=== PATIENT | male | born 1945 | race African-American/Black ===

== ENCOUNTER 2017-05-28 18:02 | Inpatient (IN) | payer MEDICARE, MEDICAID ==
[~2017-05-28] VITALS: Ht 170.2 cm; Wt 69.4 kg
[~2017-05-28 18:02] MED LIST: FLUO-191 PO; RISP1 PO; SIMV-260 PO
[2017-05-28 20:08] LABS: EOSINOPHILS % (AUTO) 0.7 % (1.0-6.0); HEMATOCRIT 37.6 % (41-53); HEMOGLOBIN 12.9 g/dL (13.5-17.5); LYMPHOCYTES # (AUTO) 2.2 K/uL (1.0-4.8); LYMPHOCYTES % (AUTO) 36.8 % (22.0-44.0); MEAN CORPUSCULAR HEMOGLOBIN 34.4 pg (26.0-34.0); MEAN CORPUSCULAR HGB CONC 34.2 G/dL (31.0-37.0); MEAN CORPUSCULAR VOLUME 101 fL (80-100); MONOCYTES # (AUTO) 0.8 K/uL (0.1-1.0); MONOCYTES % (AUTO) 13.3 % (2.0-9.0); NEUTROPHILS # (AUTO) 2.8 K/uL (1.8-7.7); NEUTROPHILS % (AUTO) 48.2 % (40.0-70.0); PLATELET COUNT (AUTO) 257 K/uL (150-450); RED BLOOD CELL COUNT(AUTO) 3.74 MIL/uL (4.50-5.90); RED CELL DISTRIBUTION WIDTH 14.1 % (11.5-14.5)
[2017-05-28 20:17] LABS: ANION GAP 13 mmol/L (8-16); CALCIUM, TOTAL 9.6 mg/dL (8.8-10.5); CARBON DIOXIDE 22 mmol/L (22-29); CHLORIDE 104 mmol/L (98-107); CREATININE 0.96 mg/dL (0.60-1.30); GLOMERULAR FILTR. RATE CALC > 60 mL/min (>60); GLUCOSE,RANDOM 191 mg/dL (70-110); POTASSIUM 3.9 mmol/L (3.5-5.1); SODIUM SERUM 139 mmol/L (136-145); UREA NITROGEN, BLOOD 18 mg/dL (7-18)
[2017-05-28 20:25] LABS: ALANINE AMINOTRANSFERASE 57 U/L (12-78); ALBUMIN 3.4 g/dL (3.4-5.0); ALKALINE PHOSPHATASE 78 U/L (46-116); ASPARTATE AMINOTRANSFERASE 63 U/L (15-37); BILIRUBIN,TOTAL 0.2 mg/dL (0.1-1.0); TOTAL PROTEIN, SERUM 8.6 g/dL (6.4-8.2)
[2017-05-28] MEDS ORDERED: HALOPERIDOL 5 MG TABLET PO PRN (23:00)
[2017-05-28] MEDS ORDERED: LORazepam 2 MG TABLET PO PRN (23:00)
[2017-05-28] MEDS ORDERED: ZOLPIDEM TARTRATE 10 MG TABLET PO PRN (23:00)
[2017-05-29 00:30] VITALS: BP 143/96
[2017-05-29 01:29] VITALS: BP 143/96
[2017-05-29 12:59] VITALS: BP 136/83
[2017-05-29] MEDS ORDERED: IBUPROFEN 400 MG TABLET PO PRN (16:45)
[2017-05-29] MEDS ORDERED: ACETAMINOPHEN 325 MG TABLET PO PRN (16:45)
[2017-05-29] MEDS: FERROUS SULFATE 325 MG EC TABLET PO SCH (17:36)
[2017-05-29 18:57] VITALS: BP 148/80
[2017-05-29] MEDS: RisperiDONE 1 MG TABLET PO SCH (21:22)
[2017-05-29] MEDS: SIMVASTATIN 20 MG TABLET PO SCH (21:22)
[2017-05-30] MEDS: FERROUS SULFATE 325 MG EC TABLET PO SCH ×2 (06:49→17:10)
[2017-05-30] MEDS: FLUoxetine HCL 20 MG CAPSULE PO SCH (08:41)
[2017-05-30 09:58] VITALS: BP 120/87
[2017-05-30 10:50] LABS: AMPHET/METH SCREEN,URINE NEGATIVE (NEGATIVE); BARBITURATE SCREEN, URINE NEGATIVE (NEGATIVE); BENZODIAZEPINES SCREEN,URINE NEGATIVE (NEGATIVE); CANNABINOID SCREEN,URINE NEGATIVE (NEGATIVE); COCAINE SCREEN,URINE POSITIVE (NEGATIVE); METHADONE SCREEN, URINE NEGATIVE (NEGATIVE); OPIATE SCREEN,URINE NEGATIVE (NEGATIVE)
[2017-05-30 10:56] LABS: PHENCYCLIDINE SCREEN,URINE NEGATIVE (NEGATIVE)
[2017-05-30 11:25] LABS: APPEARANCE,URINE CLOUDY (CLEAR); BILIRUBIN,URINE NEGATIVE (NEGATIVE); GLUCOSE, URINE (UA) NEGATIVE (NEGATIVE); KETONES,URINE NEGATIVE (NEGATIVE); LEUKOCYTE ESTERASE ,URINE LARGE (NEGATIVE); NITRATE,URINE POSITIVE (NEGATIVE); OCCULT BLOOD,URINE NEGATIVE (NEGATIVE); PROTEIN,URINE NEGATIVE (NEGATIVE)
[2017-05-30 12:15] LABS: BACTERIA,URINE Many /HPF (None Seen); RBC,URINE 0-2 /HPF (0-2); SQUAMOUS EPITHELIAL CELL,UR Moderate /LPF (None Seen); WBC,URINE 26-50 /HPF (0-5)
[2017-05-30 16:48] VITALS: BP 126/90
[2017-05-30] MEDS: SIMVASTATIN 20 MG TABLET PO SCH (20:11)
[2017-05-30] MEDS: RisperiDONE 1 MG TABLET PO SCH (20:12)
[2017-05-31] MEDS: FERROUS SULFATE 325 MG EC TABLET PO SCH ×2 (06:36→17:02)
[2017-05-31 09:00] VITALS: BP 136/67
[2017-05-31] MEDS: FLUoxetine HCL 20 MG CAPSULE PO SCH (09:05)
[2017-05-31] MEDS: CIPROFLOXACIN HCL 500 MG TABLET PO SCH ×2 (09:06→17:09)
[2017-05-31 17:16] VITALS: BP 150/95
[2017-05-31] MEDS: SIMVASTATIN 20 MG TABLET PO SCH (20:28)
[2017-05-31] MEDS: RisperiDONE 1 MG TABLET PO SCH (20:28)
[2017-06-01] MEDS: FERROUS SULFATE 325 MG EC TABLET PO SCH ×2 (06:54→16:20)
[2017-06-01 09:00] VITALS: BP 108/87
[2017-06-01] MEDS: CIPROFLOXACIN HCL 500 MG TABLET PO SCH ×2 (09:19→16:20)
[2017-06-01] MEDS: FLUoxetine HCL 20 MG CAPSULE PO SCH (09:20)
[2017-06-01] MEDS: RisperiDONE 1 MG TABLET PO SCH (20:51)
[2017-06-01] MEDS: SIMVASTATIN 20 MG TABLET PO SCH (20:51)
[2017-06-01 21:51] VITALS: BP 120/82
[2017-06-02] MEDS: FERROUS SULFATE 325 MG EC TABLET PO SCH ×2 (06:38→16:32)
[2017-06-02] MEDS: FLUoxetine HCL 20 MG CAPSULE PO SCH (08:34)
[2017-06-02] MEDS: CIPROFLOXACIN HCL 500 MG TABLET PO SCH ×2 (08:34→16:32)
[2017-06-02 09:37] VITALS: BP 108/76
[2017-06-02] MEDS: RisperiDONE 1 MG TABLET PO SCH (20:21)
[2017-06-02] MEDS: SIMVASTATIN 20 MG TABLET PO SCH (20:21)
[2017-06-02 22:24] VITALS: BP 140/97
[2017-06-03] MEDS: FERROUS SULFATE 325 MG EC TABLET PO SCH ×2 (06:54→17:22)
[2017-06-03 08:30] VITALS: BP 102/70
[2017-06-03] MEDS: FLUoxetine HCL 20 MG CAPSULE PO SCH (09:44)
[2017-06-03] MEDS: CIPROFLOXACIN HCL 500 MG TABLET PO SCH ×2 (09:44→17:22)
[2017-06-03 17:23] VITALS: BP 119/89
[2017-06-03] MEDS: RisperiDONE 1 MG TABLET PO SCH (20:54)
[2017-06-03] MEDS: SIMVASTATIN 20 MG TABLET PO SCH (20:54)
[2017-06-04] MEDS: FERROUS SULFATE 325 MG EC TABLET PO SCH ×2 (06:45→17:16)
[2017-06-04] MEDS: CIPROFLOXACIN HCL 500 MG TABLET PO SCH ×2 (08:19→17:16)
[2017-06-04] MEDS: FLUoxetine HCL 20 MG CAPSULE PO SCH (08:20)
[2017-06-04 12:27] VITALS: BP 133/91
[2017-06-04 19:00] VITALS: BP 111/88
[2017-06-04] MEDS: RisperiDONE 1 MG TABLET PO SCH (20:24)
[2017-06-04] MEDS: SIMVASTATIN 20 MG TABLET PO SCH (20:24)
[2017-06-05] MEDS: FERROUS SULFATE 325 MG EC TABLET PO SCH (06:49)
[2017-06-05 08:15] VITALS: BP 127/73
[2017-06-05] MEDS: CIPROFLOXACIN HCL 500 MG TABLET PO SCH (08:21)
[2017-06-05] MEDS: FLUoxetine HCL 20 MG CAPSULE PO SCH (08:21)
[2017-06-05] MEDS ORDERED: FERR-89 PO (09:27)
[2017-06-05] MEDS ORDERED: CIPR-278 PO (09:27)
== END 2017-06-05 11:35 | disposition home or self-care (01) | DRG 885 ==
LOC: EMS 18:02 → 3EX 05-29 00:01
PROVIDERS: ADMIT Psychiatry & Neurology Psychiatry; ATTEND Psychiatry & Neurology Psychiatry
DX: F33.2 Major depressive disorder, recurrent severe without psychotic features (principal); R45.851 Suicidal ideations; F14.20 Cocaine dependence, uncomplicated; D64.9 Anemia, unspecified; N39.0 Urinary tract infection, site not specified; G89.29 Other chronic pain; F10.20 Alcohol dependence, uncomplicated; F41.9 Anxiety disorder, unspecified; E78.5 Hyperlipidemia, unspecified; M54.9 Dorsalgia, unspecified; F19.10 Other psychoactive substance abuse, uncomplicated; R45.87 Impulsiveness; B96.20 Unspecified Escherichia coli [E. coli] as the cause of diseases classified elsewhere; Z91.19 Patient's noncompliance with other medical treatment and regimen; Z91.5 Personal history of self-harm; Z71.41 Alcohol abuse counseling and surveillance of alcoholic; Z71.89 Other specified counseling; Z59.0 Homelessness
CPT/HCPCS: 80307; 87081; 87086; 99285; G0480

== ENCOUNTER 2017-06-16 17:06 | Emergency (ER) | payer MEDICARE, MEDICAID ==
[~2017-06-16] VITALS: Ht 165.1 cm; Wt 70.5 kg
[~2017-06-16 17:06] MED LIST changes: +CIPR-278 PO; +FERR-89 PO
[2017-06-16] MEDS ORDERED: ASPI81 PO (17:46)
[2017-06-16 18:31] VITALS: BP 120/90
== END 2017-06-16 19:40 | disposition left against medical advice (07) ==
LOC: EMS 17:07
DX: F10.129 Alcohol abuse with intoxication, unspecified (principal); F14.10 Cocaine abuse, uncomplicated; F17.200 Nicotine dependence, unspecified, uncomplicated
CPT/HCPCS: 99283

== ENCOUNTER 2017-11-11 22:33 | Inpatient (IN) | payer MEDICARE, MEDICAID ==
[~2017-11-11] VITALS: Ht 170.2 cm; Wt 71.4 kg
[~2017-11-11 22:33] MED LIST changes: +ASPI81 PO; -CIPR-278 PO
[2017-11-11 23:26] LABS: BASOPHILS % (AUTO) 0.7 % (0.0-2.0); EOSINOPHILS % (AUTO) 1.5 % (1.0-6.0); HEMATOCRIT 40.5 % (41-53); HEMOGLOBIN 13.9 g/dL (13.5-17.5); LYMPHOCYTES # (AUTO) 1.8 K/uL (1.0-4.8); LYMPHOCYTES % (AUTO) 40.6 % (22.0-44.0); MEAN CORPUSCULAR HEMOGLOBIN 32.5 pg (26.0-34.0); MEAN CORPUSCULAR HGB CONC 34.3 G/dL (31.0-37.0); MEAN CORPUSCULAR VOLUME 95 fL (80-100); MONOCYTES # (AUTO) 0.5 K/uL (0.1-1.0); MONOCYTES % (AUTO) 11.2 % (2.0-9.0); PLATELET COUNT (AUTO) 170 K/uL (150-450); RED BLOOD CELL COUNT(AUTO) 4.28 MIL/uL (4.50-5.90); RED CELL DISTRIBUTION WIDTH 13.5 % (11.5-14.5)
[2017-11-11 23:37] LABS: ANION GAP 8 mmol/L (8-16); CALCIUM, TOTAL 9.7 mg/dL (8.8-10.5); CARBON DIOXIDE 26 mmol/L (22-29); CHLORIDE 107 mmol/L (98-107); CREATININE 0.93 mg/dL (0.60-1.30); GLOMERULAR FILTR. RATE CALC > 60 mL/min (>60); GLUCOSE,RANDOM 119 mg/dL (70-110); POTASSIUM 4.1 mmol/L (3.5-5.1); SODIUM SERUM 141 mmol/L (136-145); UREA NITROGEN, BLOOD 15 mg/dL (7-18)
[2017-11-11 23:42] LABS: ALANINE AMINOTRANSFERASE 87 U/L (12-78); ALBUMIN 3.8 g/dL (3.4-5.0); ALKALINE PHOSPHATASE 87 U/L (46-116); ASPARTATE AMINOTRANSFERASE 65 U/L (15-37); BILIRUBIN,TOTAL 0.4 mg/dL (0.1-1.0); TOTAL PROTEIN, SERUM 8.4 g/dL (6.4-8.2)
[2017-11-12 01:43] LABS: AMPHET/METH SCREEN,URINE NEGATIVE (NEGATIVE); BARBITURATE SCREEN, URINE NEGATIVE (NEGATIVE); BENZODIAZEPINES SCREEN,URINE NEGATIVE (NEGATIVE); CANNABINOID SCREEN,URINE NEGATIVE (NEGATIVE); COCAINE SCREEN,URINE NEGATIVE (NEGATIVE); METHADONE SCREEN, URINE NEGATIVE (NEGATIVE); OPIATE SCREEN,URINE NEGATIVE (NEGATIVE); PHENCYCLIDINE SCREEN,URINE NEGATIVE (NEGATIVE)
[2017-11-12] MEDS ORDERED: HALOPERIDOL 5 MG TABLET PO PRN (03:00)
[2017-11-12] MEDS ORDERED: ZOLPIDEM TARTRATE 10 MG TABLET PO PRN (03:00)
[2017-11-12] MEDS ORDERED: LORazepam 2 MG TABLET PO PRN (03:00)
[2017-11-12 04:48] LABS: APPEARANCE,URINE CLEAR (CLEAR); BILIRUBIN,URINE NEGATIVE (NEGATIVE); GLUCOSE, URINE (UA) NEGATIVE (NEGATIVE); KETONES,URINE NEGATIVE (NEGATIVE); LEUKOCYTE ESTERASE ,URINE TRACE (NEGATIVE); NITRATE,URINE NEGATIVE (NEGATIVE); OCCULT BLOOD,URINE NEGATIVE (NEGATIVE); PROTEIN,URINE NEGATIVE (NEGATIVE)
[2017-11-12 04:54] VITALS: BP 130/86
[2017-11-12 05:01] LABS: BACTERIA,URINE None Seen /HPF (None Seen); RBC,URINE 0-2 /HPF (0-2); SQUAMOUS EPITHELIAL CELL,UR Few /LPF (None Seen)
[2017-11-12] MEDS ORDERED: ONDANSETRON HCL 4 MG TABLET PO PRN (05:30)
[2017-11-12] MEDS ORDERED: DOCUSATE SODIUM 100 MG CAPSULE PO PRN (05:30)
[2017-11-12] MEDS ORDERED: GuaiFENesin/D-METHORPHAN [SUGAR-FREE] 200-20MG/10 ML SYRUP UDCUP PO PRN (05:30)
[2017-11-12] MEDS ORDERED: NICOTINE 14 MG/24 HOUR PATCH TD PRN (05:30)
[2017-11-12] MEDS ORDERED: ACETAMINOPHEN 325 MG TABLET PO PRN (05:30)
[2017-11-12] MEDS ORDERED: PETROLATUM,WHITE 71 GM JELLY TP PRN (05:30)
[2017-11-12] MEDS ORDERED: MAG HYDROX/AL HYDROX/SIMETH ES 30 ML SUSPENSION UDCUP PO PRN (05:30)
[2017-11-12] MEDS ORDERED: ALBUTEROL SULFATE HFA 90 MCG/PUFF 8 GM INHALER IH PRN (05:30)
[2017-11-12] MEDS ORDERED: CloNIDine HCL 0.1 MG TABLET PO PRN (05:30)
[2017-11-12] MEDS ORDERED: LOPERAMIDE HCL 2 MG CAPSULE PO PRN (05:30)
[2017-11-12] MEDS ORDERED: PNEUMOCOCCAL VACCINE POLYVALENT 0.5 ML VIAL [PPSV23] IM ONE (07:00)
[2017-11-12 08:55] VITALS: BP 129/88
[2017-11-12] MEDS: MAGNESIUM HYDROXIDE SUSPENSION 30 ML UDCUP PO PRN (12:52)
[2017-11-12] MEDS: FERROUS SULFATE 325 MG EC TABLET PO SCH (16:27)
[2017-11-12] MEDS: CIPROFLOXACIN HCL 250 MG TABLET PO SCH (16:27)
[2017-11-12 17:00] VITALS: BP 119/85
[2017-11-12] MEDS: SIMVASTATIN 20 MG TABLET PO SCH (21:33)
[2017-11-12] MEDS: RisperiDONE 1 MG TABLET PO SCH (21:34)
[2017-11-13] MEDS: FERROUS SULFATE 325 MG EC TABLET PO SCH ×2 (07:32→16:17)
[2017-11-13 08:30] VITALS: BP 107/77
[2017-11-13] MEDS: FLUoxetine HCL 20 MG CAPSULE PO SCH (09:19)
[2017-11-13] MEDS: CIPROFLOXACIN HCL 250 MG TABLET PO SCH ×2 (09:19→16:17)
[2017-11-13] MEDS: IBUPROFEN 400 MG TABLET PO PRN (09:19)
[2017-11-13] MEDS: ASPIRIN 81 MG CHEWABLE TABLET PO SCH (09:19)
[2017-11-13] MEDS: MAGNESIUM HYDROXIDE SUSPENSION 30 ML UDCUP PO PRN (12:38)
[2017-11-13] MEDS ORDERED: BISACODYL 10 MG RECTAL RECTAL SUPPOSITORY PR PRN (14:30)
[2017-11-13 16:00] VITALS: BP 110/67
[2017-11-13] MEDS: RisperiDONE 1 MG TABLET PO SCH (20:05)
[2017-11-13] MEDS: SIMVASTATIN 20 MG TABLET PO SCH (20:05)
[2017-11-14 05:55] VITALS: BP 102/71
[2017-11-14] MEDS: FERROUS SULFATE 325 MG EC TABLET PO SCH ×2 (07:17→16:32)
[2017-11-14] MEDS: FLUoxetine HCL 20 MG CAPSULE PO SCH (09:48)
[2017-11-14] MEDS: ASPIRIN 81 MG CHEWABLE TABLET PO SCH (09:48)
[2017-11-14] MEDS: CIPROFLOXACIN HCL 250 MG TABLET PO SCH ×2 (09:48→16:32)
[2017-11-14 10:28] VITALS: BP 116/83
[2017-11-14 16:00] VITALS: BP 112/63
[2017-11-14] MEDS: RisperiDONE 1 MG TABLET PO SCH (21:17)
[2017-11-14] MEDS: SIMVASTATIN 20 MG TABLET PO SCH (21:17)
[2017-11-15] MEDS: MAGNESIUM HYDROXIDE SUSPENSION 30 ML UDCUP PO PRN (05:42)
[2017-11-15 05:50] VITALS: BP 125/85
[2017-11-15 06:34] LABS: FREE T4 (FREE THYROXINE) 0.86 ng/dL (0.76-1.46); THYROID STIMULATING HORMONE 1.9 uIU/mL (0.36-3.74)
[2017-11-15] MEDS: FERROUS SULFATE 325 MG EC TABLET PO SCH ×2 (07:11→20:55)
[2017-11-15] MEDS: IBUPROFEN 400 MG TABLET PO PRN (07:31)
[2017-11-15] MEDS: CIPROFLOXACIN HCL 250 MG TABLET PO SCH ×2 (08:17→17:01)
[2017-11-15] MEDS: ASPIRIN 81 MG CHEWABLE TABLET PO SCH (08:18)
[2017-11-15] MEDS: FLUoxetine HCL 20 MG CAPSULE PO SCH (08:18)
[2017-11-15 08:31] VITALS: BP 118/87
[2017-11-15 09:40] VITALS: BP 118/87
[2017-11-15] MEDS ORDERED: FERROUS SULFATE 325 MG EC TABLET PO SCH (17:30)
[2017-11-15 19:33] VITALS: BP 111/73
[2017-11-15] MEDS: SIMVASTATIN 20 MG TABLET PO SCH (20:56)
[2017-11-15] MEDS: RisperiDONE 1 MG TABLET PO SCH (20:56)
[2017-11-16 00:53] VITALS: BP 129/73
[2017-11-16] MEDS: IBUPROFEN 400 MG TABLET PO PRN ×2 (00:58→13:24)
[2017-11-16 07:49] LABS: BASOPHILS % (AUTO) 1.7 % (0.0-2.0); EOSINOPHILS % (AUTO) 1.7 % (1.0-6.0); HEMOGLOBIN 13.7 g/dL (13.5-17.5); LYMPHOCYTES # (AUTO) 1.3 K/uL (1.0-4.8); LYMPHOCYTES % (AUTO) 34.5 % (22.0-44.0); MEAN CORPUSCULAR HEMOGLOBIN 33.1 pg (26.0-34.0); MEAN CORPUSCULAR HGB CONC 34.3 G/dL (31.0-37.0); MEAN CORPUSCULAR VOLUME 96 fL (80-100); MONOCYTES # (AUTO) 0.6 K/uL (0.1-1.0); MONOCYTES % (AUTO) 15.6 % (2.0-9.0); NEUTROPHILS # (AUTO) 1.8 K/uL (1.8-7.7); NEUTROPHILS % (AUTO) 46.5 % (40.0-70.0); PLATELET COUNT (AUTO) 152 K/uL (150-450); RED BLOOD CELL COUNT(AUTO) 4.15 MIL/uL (4.50-5.90); RED CELL DISTRIBUTION WIDTH 13.6 % (11.5-14.5)
[2017-11-16 08:21] VITALS: BP 123/84
[2017-11-16] MEDS: CIPROFLOXACIN HCL 250 MG TABLET PO SCH ×2 (10:56→16:38)
[2017-11-16] MEDS: FLUoxetine HCL 20 MG CAPSULE PO SCH (10:56)
[2017-11-16] MEDS: FERROUS SULFATE 325 MG EC TABLET PO SCH ×2 (10:57→22:20)
[2017-11-16] MEDS: ASPIRIN 81 MG CHEWABLE TABLET PO SCH (10:58)
[2017-11-16 19:55] VITALS: BP 126/81
[2017-11-16] MEDS: RisperiDONE 1 MG TABLET PO SCH (22:20)
[2017-11-16] MEDS: SIMVASTATIN 20 MG TABLET PO SCH (22:20)
[2017-11-17 05:08] VITALS: BP 122/78
[2017-11-17 08:15] VITALS: BP 119/75
[2017-11-17] MEDS: FOLIC ACID 1 MG TABLET PO SCH (08:20)
[2017-11-17] MEDS: FLUoxetine HCL 20 MG CAPSULE PO SCH (08:20)
[2017-11-17] MEDS: CIPROFLOXACIN HCL 250 MG TABLET PO SCH ×2 (08:20→16:48)
[2017-11-17] MEDS: ASPIRIN 81 MG CHEWABLE TABLET PO SCH (08:21)
[2017-11-17 11:19] VITALS: BP 128/81
[2017-11-17] MEDS: IBUPROFEN 400 MG TABLET PO PRN (11:22)
[2017-11-17] MEDS: FERROUS SULFATE 325 MG EC TABLET PO SCH ×2 (11:52→20:10)
[2017-11-17 12:30] VITALS: BP 129/77
[2017-11-17 19:00] VITALS: BP 116/74
[2017-11-17] MEDS: RisperiDONE 1 MG TABLET PO SCH (20:10)
[2017-11-17] MEDS: SIMVASTATIN 20 MG TABLET PO SCH (20:10)
[2017-11-18 03:36] VITALS: BP 118/83
[2017-11-18 08:50] VITALS: BP 129/90
[2017-11-18] MEDS: FLUoxetine HCL 20 MG CAPSULE PO SCH (09:00)
[2017-11-18] MEDS: CIPROFLOXACIN HCL 250 MG TABLET PO SCH ×2 (09:00→17:00)
[2017-11-18] MEDS: FOLIC ACID 1 MG TABLET PO SCH (09:00)
[2017-11-18] MEDS: IBUPROFEN 400 MG TABLET PO PRN (09:00)
[2017-11-18] MEDS: ASPIRIN 81 MG CHEWABLE TABLET PO SCH (09:00)
[2017-11-18 10:00] VITALS: BP 122/76
[2017-11-18] MEDS: FERROUS SULFATE 325 MG EC TABLET PO SCH ×2 (12:30→20:41)
[2017-11-18 16:55] VITALS: BP 123/72
[2017-11-18] MEDS: RisperiDONE 1 MG TABLET PO SCH (20:41)
[2017-11-18] MEDS: SIMVASTATIN 20 MG TABLET PO SCH (20:41)
[2017-11-19 03:24] VITALS: BP 127/82
[2017-11-19] MEDS: IBUPROFEN 400 MG TABLET PO PRN (03:30)
[2017-11-19] MEDS: ASPIRIN 81 MG CHEWABLE TABLET PO SCH (08:10)
[2017-11-19] MEDS: FOLIC ACID 1 MG TABLET PO SCH (08:11)
[2017-11-19] MEDS: CIPROFLOXACIN HCL 250 MG TABLET PO SCH ×2 (08:11→16:41)
[2017-11-19] MEDS: FLUoxetine HCL 20 MG CAPSULE PO SCH (08:11)
[2017-11-19 09:16] VITALS: BP 142/95
[2017-11-19] MEDS: FERROUS SULFATE 325 MG EC TABLET PO SCH ×2 (13:21→21:05)
[2017-11-19 17:22] VITALS: BP 139/93
[2017-11-19] MEDS: SIMVASTATIN 20 MG TABLET PO SCH (21:05)
[2017-11-19] MEDS: RisperiDONE 1 MG TABLET PO SCH (21:06)
[2017-11-20 02:02] VITALS: BP 109/70
[2017-11-20] MEDS: IBUPROFEN 400 MG TABLET PO PRN (02:05)
[2017-11-20] MEDS: FOLIC ACID 1 MG TABLET PO SCH (08:35)
[2017-11-20] MEDS: FLUoxetine HCL 20 MG CAPSULE PO SCH (08:35)
[2017-11-20] MEDS: CIPROFLOXACIN HCL 250 MG TABLET PO SCH ×2 (08:36→16:21)
[2017-11-20] MEDS: ASPIRIN 81 MG CHEWABLE TABLET PO SCH (08:37)
[2017-11-20] MEDS: FERROUS SULFATE 325 MG EC TABLET PO SCH ×2 (12:27→20:24)
[2017-11-20 13:08] VITALS: BP 122/69
[2017-11-20 17:00] VITALS: BP 136/83
[2017-11-20] MEDS: RisperiDONE 1 MG TABLET PO SCH (20:24)
[2017-11-20] MEDS: SIMVASTATIN 20 MG TABLET PO SCH (20:24)
[2017-11-21 06:17] LABS: BASOPHILS % (AUTO) 0.4 % (0.0-2.0); EOSINOPHILS % (AUTO) 1.6 % (1.0-6.0); HEMATOCRIT 37.3 % (41-53); HEMOGLOBIN 12.7 g/dL (13.5-17.5); LYMPHOCYTES # (AUTO) 1.4 K/uL (1.0-4.8); LYMPHOCYTES % (AUTO) 33.9 % (22.0-44.0); MEAN CORPUSCULAR HEMOGLOBIN 32.7 pg (26.0-34.0); MEAN CORPUSCULAR HGB CONC 34.1 G/dL (31.0-37.0); MEAN CORPUSCULAR VOLUME 96 fL (80-100); MONOCYTES # (AUTO) 0.8 K/uL (0.1-1.0); MONOCYTES % (AUTO) 20.2 % (2.0-9.0); NEUTROPHILS # (AUTO) 1.8 K/uL (1.8-7.7); NEUTROPHILS % (AUTO) 43.9 % (40.0-70.0); PLATELET COUNT (AUTO) 139 K/uL (150-450); RED BLOOD CELL COUNT(AUTO) 3.88 MIL/uL (4.50-5.90); RED CELL DISTRIBUTION WIDTH 13.8 % (11.5-14.5)
[2017-11-21 06:39] VITALS: BP 132/86
[2017-11-21] MEDS: IBUPROFEN 400 MG TABLET PO PRN (06:41)
[2017-11-21] MEDS: FLUoxetine HCL 20 MG CAPSULE PO SCH (08:21)
[2017-11-21] MEDS: CIPROFLOXACIN HCL 250 MG TABLET PO SCH ×2 (08:21→16:07)
[2017-11-21] MEDS: ASPIRIN 81 MG CHEWABLE TABLET PO SCH (08:21)
[2017-11-21] MEDS: FOLIC ACID 1 MG TABLET PO SCH (08:21)
[2017-11-21 09:00] VITALS: BP 133/89
[2017-11-21] MEDS: FERROUS SULFATE 325 MG EC TABLET PO SCH ×2 (12:21→21:04)
[2017-11-21 17:00] VITALS: BP 144/98
[2017-11-21] MEDS: RisperiDONE 1 MG TABLET PO SCH (21:04)
[2017-11-21] MEDS: SIMVASTATIN 20 MG TABLET PO SCH (21:04)
[2017-11-22 06:22] VITALS: BP 124/66
[2017-11-22 08:30] VITALS: BP 141/89
[2017-11-22] MEDS: FLUoxetine HCL 20 MG CAPSULE PO SCH ×2 (09:00→09:20)
[2017-11-22] MEDS: FOLIC ACID 1 MG TABLET PO SCH (09:20)
[2017-11-22] MEDS: ASPIRIN 81 MG CHEWABLE TABLET PO SCH (09:20)
[2017-11-22] MEDS: CIPROFLOXACIN HCL 250 MG TABLET PO SCH ×2 (09:20→16:09)
[2017-11-22 09:21] VITALS: BP 144/90
[2017-11-22] MEDS: IBUPROFEN 400 MG TABLET PO PRN (09:21)
[2017-11-22] MEDS: FERROUS SULFATE 325 MG EC TABLET PO SCH ×2 (12:44→20:24)
[2017-11-22] MEDS ORDERED: TraMADol HCL 50 MG TABLET PO PRN (13:45)
[2017-11-22 14:09] VITALS: BP 133/83
[2017-11-22 19:49] VITALS: BP 109/76
[2017-11-22] MEDS: RisperiDONE 1 MG TABLET PO SCH (20:24)
[2017-11-22] MEDS: SIMVASTATIN 20 MG TABLET PO SCH (20:24)
[2017-11-23 02:30] VITALS: BP 120/77
[2017-11-23 08:00] VITALS: BP 132/86
[2017-11-23] MEDS: ASPIRIN 81 MG CHEWABLE TABLET PO SCH (09:00)
[2017-11-23] MEDS: FOLIC ACID 1 MG TABLET PO SCH (09:00)
[2017-11-23] MEDS: FLUoxetine HCL 20 MG CAPSULE PO SCH (09:01)
[2017-11-23] MEDS: FERROUS SULFATE 325 MG EC TABLET PO SCH ×2 (12:01→20:01)
[2017-11-23 19:12] VITALS: BP 128/81
[2017-11-23] MEDS: IBUPROFEN 400 MG TABLET PO PRN (19:12)
[2017-11-23 19:37] VITALS: BP 137/80
[2017-11-23] MEDS: SIMVASTATIN 20 MG TABLET PO SCH (20:01)
[2017-11-23] MEDS: RisperiDONE 1 MG TABLET PO SCH (20:01)
[2017-11-23 20:12] VITALS: BP 130/79
[2017-11-24 04:00] VITALS: BP 136/87
[2017-11-24 08:42] VITALS: BP 149/89
[2017-11-24] MEDS: IBUPROFEN 400 MG TABLET PO PRN (08:42)
[2017-11-24] MEDS: ASPIRIN 81 MG CHEWABLE TABLET PO SCH (08:42)
[2017-11-24] MEDS: FOLIC ACID 1 MG TABLET PO SCH (08:42)
[2017-11-24] MEDS: FLUoxetine HCL 20 MG CAPSULE PO SCH (08:43)
[2017-11-24] MEDS ORDERED: FOLI1 PO (08:55)
== END 2017-11-24 12:30 | disposition home or self-care (01) | DRG 885 ==
LOC: EMS 22:34 → 3EX 11-12 02:22
PROVIDERS: ATTEND Psychiatry & Neurology Psychiatry
DX: F25.1 Schizoaffective disorder, depressive type (principal); R45.851 Suicidal ideations; N39.0 Urinary tract infection, site not specified; Z59.0 Homelessness; F41.9 Anxiety disorder, unspecified; D64.9 Anemia, unspecified; D72.819 Decreased white blood cell count, unspecified; E78.5 Hyperlipidemia, unspecified; F10.20 Alcohol dependence, uncomplicated; F14.10 Cocaine abuse, uncomplicated; F17.200 Nicotine dependence, unspecified, uncomplicated; Z91.19 Patient's noncompliance with other medical treatment and regimen; Z91.5 Personal history of self-harm; R74.0 Nonspecific elevation of levels of transaminase and lactic acid dehydrogenase [LDH]; G89.29 Other chronic pain; Z79.82 Long term (current) use of aspirin; Z79.899 Other long term (current) drug therapy; R45.87 Impulsiveness; Z28.21 Immunization not carried out because of patient refusal
CPT/HCPCS: 84439; 84443; 87086; 99285; G0480

== ENCOUNTER 2017-11-30 08:27 | Inpatient (IN) | payer MEDICARE, MEDICAID ==
[~2017-11-30] VITALS: Ht 170.2 cm; Wt 71.4 kg
[~2017-11-30 08:27] MED LIST changes: +FOLI1 PO
[2017-11-30] MEDS ORDERED: LORazepam 2 MG TABLET PO ONE (09:30)
[2017-11-30] MEDS ORDERED: RisperiDONE 1 MG TABLET PO ONE (09:30)
[2017-11-30 09:52] LABS: BASOPHILS % (AUTO) 0.9 % (0.0-2.0); EOSINOPHILS % (AUTO) 0.2 % (1.0-6.0); HEMATOCRIT 38.9 % (41-53); HEMOGLOBIN 13.1 g/dL (13.5-17.5); LYMPHOCYTES % (AUTO) 19.2 % (22.0-44.0); MEAN CORPUSCULAR HEMOGLOBIN 32.7 pg (26.0-34.0); MEAN CORPUSCULAR HGB CONC 33.8 G/dL (31.0-37.0); MEAN CORPUSCULAR VOLUME 97 fL (80-100); MONOCYTES # (AUTO) 0.5 K/uL (0.1-1.0); MONOCYTES % (AUTO) 9.2 % (2.0-9.0); NEUTROPHILS # (AUTO) 3.5 K/uL (1.8-7.7); NEUTROPHILS % (AUTO) 70.5 % (40.0-70.0); PLATELET COUNT (AUTO) 176 K/uL (150-450); RED BLOOD CELL COUNT(AUTO) 4.01 MIL/uL (4.50-5.90)
[2017-11-30] MEDS ORDERED: ZOLPIDEM TARTRATE 10 MG TABLET PO PRN (10:00)
[2017-11-30] MEDS ORDERED: LORazepam 2 MG TABLET PO PRN (10:00)
[2017-11-30] MEDS ORDERED: HALOPERIDOL 5 MG TABLET PO PRN (10:00)
[2017-11-30 10:03] LABS: ANION GAP 11 mmol/L (8-16); CALCIUM, TOTAL 8.7 mg/dL (8.8-10.5); CARBON DIOXIDE 26 mmol/L (22-29); CHLORIDE 105 mmol/L (98-107); CREATININE 0.89 mg/dL (0.60-1.30); GLUCOSE,RANDOM 177 mg/dL (70-110); POTASSIUM 3.8 mmol/L (3.5-5.1); SODIUM SERUM 142 mmol/L (136-145); UREA NITROGEN, BLOOD 19 mg/dL (7-18)
[2017-11-30 10:05] LABS: GLOMERULAR FILTR. RATE CALC > 60 mL/min (>60)
[2017-11-30 10:09] LABS: ALANINE AMINOTRANSFERASE 110 U/L (12-78); ALBUMIN 3.7 g/dL (3.4-5.0); ALKALINE PHOSPHATASE 152 U/L (46-116); ASPARTATE AMINOTRANSFERASE 149 U/L (15-37); BILIRUBIN,TOTAL 0.3 mg/dL (0.1-1.0); TOTAL PROTEIN, SERUM 8.3 g/dL (6.4-8.2)
[2017-11-30 14:03] VITALS: BP 145/88
[2017-11-30] MEDS ORDERED: RisperiDONE 1 MG TABLET PO SCH (21:00)
[2017-12-01] MEDS ORDERED: FLUoxetine HCL 20 MG CAPSULE PO SCH (09:00)
[2017-12-06] MEDS ORDERED: NYST15PO3 TP (08:04)
== END 2017-11-30 20:13 | disposition still patient (30) | DRG 885 ==
LOC: EMS 08:28 → B2X 14:09
PROVIDERS: ADMIT Psychiatry & Neurology Psychiatry; ATTEND Psychiatry & Neurology Psychiatry
DX: F25.1 Schizoaffective disorder, depressive type (principal); R45.851 Suicidal ideations; F41.9 Anxiety disorder, unspecified; F10.229 Alcohol dependence with intoxication, unspecified; F17.210 Nicotine dependence, cigarettes, uncomplicated; F19.90 Other psychoactive substance use, unspecified, uncomplicated; F14.90 Cocaine use, unspecified, uncomplicated; G89.29 Other chronic pain; Z59.0 Homelessness; Z91.19 Patient's noncompliance with other medical treatment and regimen; Z91.5 Personal history of self-harm; Z79.899 Other long term (current) drug therapy; Y90.7 Blood alcohol level of 200-239 mg/100 ml
CPT/HCPCS: 93005; 99285; G0480

== ENCOUNTER 2018-04-17 18:19 | Inpatient (IN) | payer MEDICARE, MEDICAID ==
[~2018-04-17] VITALS: Ht 170.2 cm; Wt 74.5 kg
[~2018-04-17 18:19] MED LIST changes: -FOLI1 PO; +NYST15PO3 TP
[2018-04-17 19:58] LABS: ALBUMIN 3.3 g/dL (3.4-5.0); BILIRUBIN,TOTAL 0.2 mg/dL (0.1-1.0); CALCIUM, TOTAL 9.4 mg/dL (8.8-10.5); CREATININE 1.52 mg/dL (0.60-1.30); TOTAL PROTEIN, SERUM 7.8 g/dL (6.4-8.2)
[2018-04-17 20:02] LABS: BASOPHILS % (AUTO) 0.9 % (0.0-2.0); EOSINOPHILS % (AUTO) 0.5 % (1.0-6.0); HEMATOCRIT 39.9 % (41-53); HEMOGLOBIN 13.7 g/dL (13.5-17.5); LYMPHOCYTES # (AUTO) 2.1 K/uL (1.0-4.8); LYMPHOCYTES % (AUTO) 35.2 % (22.0-44.0); MEAN CORPUSCULAR HEMOGLOBIN 34.4 pg (26.0-34.0); MEAN CORPUSCULAR HGB CONC 34.4 G/dL (31.0-37.0); MEAN CORPUSCULAR VOLUME 100 fL (80-100); MONOCYTES # (AUTO) 0.8 K/uL (0.1-1.0); MONOCYTES % (AUTO) 13.2 % (2.0-9.0); NEUTROPHILS % (AUTO) 50.2 % (40.0-70.0); PLATELET COUNT (AUTO) 262 K/uL (150-450); RED BLOOD CELL COUNT(AUTO) 3.99 MIL/uL (4.50-5.90); RED CELL DISTRIBUTION WIDTH 14.3 % (11.5-14.5)
[2018-04-18] MEDS ORDERED: LORazepam 2 MG TABLET PO PRN (00:15)
[2018-04-18] MEDS ORDERED: HALOPERIDOL 5 MG TABLET PO PRN (00:15)
[2018-04-18 02:22] VITALS: BP 113/59
[2018-04-18] MEDS ORDERED: PNEUMOCOCCAL VACCINE POLYVALENT 0.5 ML VIAL [PPSV23] IM ONE (04:00)
[2018-04-18] MEDS ORDERED: BENZOCAINE/MENTHOL LOZENGE MM PRN (10:15)
[2018-04-18] MEDS ORDERED: CloNIDine HCL 0.1 MG TABLET PO PRN (10:15)
[2018-04-18] MEDS ORDERED: LOPERAMIDE HCL 2 MG CAPSULE PO PRN (10:15)
[2018-04-18] MEDS ORDERED: MAG HYDROX/AL HYDROX/SIMETH ES 30 ML SUSPENSION UDCUP PO PRN (10:15)
[2018-04-18] MEDS ORDERED: PETROLATUM,WHITE 71 GM JELLY TP PRN (10:15)
[2018-04-18] MEDS ORDERED: IBUPROFEN 600 MG TABLET PO PRN (10:15)
[2018-04-18] MEDS ORDERED: ONDANSETRON HCL 4 MG TABLET PO PRN (10:15)
[2018-04-18] MEDS ORDERED: ACETAMINOPHEN 325 MG TABLET PO PRN (10:15)
[2018-04-18] MEDS ORDERED: ALBUTEROL SULFATE HFA 90 MCG/PUFF 8 GM INHALER IH PRN (10:15)
[2018-04-18] MEDS ORDERED: BACITRACIN 28.4 GM OINTMENT TP PRN (10:15)
[2018-04-18] MEDS: MAGNESIUM HYDROXIDE SUSPENSION 30 ML UDCUP PO PRN (12:39)
[2018-04-18 14:27] VITALS: BP 110/70
[2018-04-18 17:00] VITALS: BP 116/79
[2018-04-18] MEDS: FERROUS SULFATE 325 MG EC TABLET PO SCH (18:14)
[2018-04-18] MEDS: RisperiDONE 1 MG TABLET PO SCH (20:46)
[2018-04-18] MEDS: SIMVASTATIN 20 MG TABLET PO SCH (20:46)
[2018-04-19 05:46] VITALS: BP 108/68
[2018-04-19] MEDS: FERROUS SULFATE 325 MG EC TABLET PO SCH ×2 (06:59→16:32)
[2018-04-19 07:21] LABS: CHOL/HDL RATIO 2.3 (4.2-7.3)
[2018-04-19] MEDS: OMEPRAZOLE 20 MG CAPSULE PO SCH (09:57)
[2018-04-19] MEDS: FLUoxetine HCL 20 MG CAPSULE PO SCH (09:58)
[2018-04-19] MEDS: DOCUSATE SODIUM 100 MG CAPSULE PO SCH (09:58)
[2018-04-19] MEDS: ASPIRIN 81 MG CHEWABLE TABLET PO SCH (09:59)
[2018-04-19 10:00] VITALS: BP 112/80
[2018-04-19 16:40] VITALS: BP 124/89
[2018-04-19] MEDS: SIMVASTATIN 20 MG TABLET PO SCH (20:30)
[2018-04-19] MEDS: RisperiDONE 1 MG TABLET PO SCH (20:30)
[2018-04-20] MEDS: FERROUS SULFATE 325 MG EC TABLET PO SCH ×2 (06:30→17:18)
[2018-04-20 09:20] VITALS: BP 119/91
[2018-04-20] MEDS: DOCUSATE SODIUM 100 MG CAPSULE PO SCH (10:08)
[2018-04-20] MEDS: ASPIRIN 81 MG CHEWABLE TABLET PO SCH (10:08)
[2018-04-20] MEDS: OMEPRAZOLE 20 MG CAPSULE PO SCH (10:08)
[2018-04-20] MEDS: FLUoxetine HCL 20 MG CAPSULE PO SCH (10:08)
[2018-04-20] MEDS: MAGNESIUM HYDROXIDE SUSPENSION 30 ML UDCUP PO PRN (10:14)
[2018-04-20 17:20] VITALS: BP 123/84
[2018-04-20] MEDS: SIMVASTATIN 20 MG TABLET PO SCH (20:16)
[2018-04-20] MEDS: RisperiDONE 1 MG TABLET PO SCH (20:16)
[2018-04-21 06:30] VITALS: BP 127/93
[2018-04-21] MEDS: FERROUS SULFATE 325 MG EC TABLET PO SCH ×2 (06:55→16:08)
[2018-04-21 09:49] VITALS: BP 106/79
[2018-04-21] MEDS: FLUoxetine HCL 20 MG CAPSULE PO SCH (10:05)
[2018-04-21] MEDS: ASPIRIN 81 MG CHEWABLE TABLET PO SCH (10:05)
[2018-04-21] MEDS: DOCUSATE SODIUM 100 MG CAPSULE PO SCH (10:05)
[2018-04-21] MEDS: OMEPRAZOLE 20 MG CAPSULE PO SCH (10:05)
[2018-04-21 16:47] VITALS: BP 129/83
[2018-04-21] MEDS: RisperiDONE 1 MG TABLET PO SCH (20:23)
[2018-04-21] MEDS: SIMVASTATIN 20 MG TABLET PO SCH (20:23)
[2018-04-21] MEDS: ZOLPIDEM TARTRATE 10 MG TABLET PO PRN (20:42)
[2018-04-22] MEDS: FERROUS SULFATE 325 MG EC TABLET PO SCH ×2 (06:34→16:05)
[2018-04-22] MEDS: LACTULOSE 20 GM/30 ML SOLUTION UDCUP PO SCH ×2 (06:34→16:07)
[2018-04-22 08:05] VITALS: BP 107/72
[2018-04-22] MEDS: FLUoxetine HCL 20 MG CAPSULE PO SCH (09:53)
[2018-04-22] MEDS: ASPIRIN 81 MG CHEWABLE TABLET PO SCH (09:53)
[2018-04-22] MEDS: DOCUSATE SODIUM 100 MG CAPSULE PO SCH (09:53)
[2018-04-22] MEDS: OMEPRAZOLE 20 MG CAPSULE PO SCH (09:53)
[2018-04-22 18:51] VITALS: BP 137/85
[2018-04-22] MEDS: RisperiDONE 1 MG TABLET PO SCH (20:54)
[2018-04-22] MEDS: ZOLPIDEM TARTRATE 10 MG TABLET PO PRN (20:56)
[2018-04-22] MEDS: SIMVASTATIN 20 MG TABLET PO SCH (21:04)
[2018-04-23] MEDS: FERROUS SULFATE 325 MG EC TABLET PO SCH (06:54)
[2018-04-23] MEDS: OMEPRAZOLE 20 MG CAPSULE PO SCH (09:41)
[2018-04-23] MEDS: ASPIRIN 81 MG CHEWABLE TABLET PO SCH (09:41)
[2018-04-23] MEDS: FLUoxetine HCL 20 MG CAPSULE PO SCH (09:41)
[2018-04-23] MEDS: DOCUSATE SODIUM 100 MG CAPSULE PO SCH (09:41)
[2018-04-23 12:45] VITALS: BP 117/79
[2018-04-23] MEDS ORDERED: OMEP20 PO (13:26)
[2018-04-23] MEDS ORDERED: DSS100 PO (13:39)
== END 2018-04-23 17:15 | disposition home or self-care (01) | DRG 885 ==
LOC: EMS 18:20 → 3EI 04-18 01:30
PROVIDERS: ADMIT Psychiatry & Neurology Psychiatry; ATTEND Psychiatry & Neurology Psychiatry
DX: F20.9 Schizophrenia, unspecified (principal); R45.851 Suicidal ideations; Z28.21 Immunization not carried out because of patient refusal; E78.00 Pure hypercholesterolemia, unspecified; G47.00 Insomnia, unspecified; G89.29 Other chronic pain; F17.200 Nicotine dependence, unspecified, uncomplicated; F10.10 Alcohol abuse, uncomplicated; Y90.9 Presence of alcohol in blood, level not specified; F19.10 Other psychoactive substance abuse, uncomplicated; B19.20 Unspecified viral hepatitis C without hepatic coma; F14.90 Cocaine use, unspecified, uncomplicated
CPT/HCPCS: 80074; G0480

== ENCOUNTER 2018-04-30 19:51 | Emergency (ER) | payer MEDICARE, MEDICAID ==
[~2018-04-30] VITALS: Ht 170.2 cm; Wt 72.7 kg
[~2018-04-30 19:51] MED LIST changes: -FERR-89 PO; +FOLI1 PO; +MAGOX PO; +MULT-248 PO; -NYST15PO3 TP
[2018-04-30 23:30] VITALS: BP 101/67
== END 2018-04-30 23:44 | disposition home or self-care (01) ==
LOC: EMS 19:52
DX: F10.129 Alcohol abuse with intoxication, unspecified (principal); R00.2 Palpitations; F32.9 Major depressive disorder, single episode, unspecified; G89.29 Other chronic pain; F14.90 Cocaine use, unspecified, uncomplicated; Z87.891 Personal history of nicotine dependence
CPT/HCPCS: 93005

== ENCOUNTER 2018-05-01 00:29 | Emergency (ER) | payer MEDICARE, MEDICAID ==
[~2018-05-01] VITALS: Ht 177.8 cm; Wt 81.8 kg
[2018-05-01 03:06] LABS: BASOPHILS % (AUTO) 0.3 % (0.0-2.0); EOSINOPHILS % (AUTO) 1.4 % (1.0-6.0); HEMATOCRIT 38.3 % (41-53); HEMOGLOBIN 12.8 g/dL (13.5-17.5); LYMPHOCYTES # (AUTO) 2.3 K/uL (1.0-4.8); LYMPHOCYTES % (AUTO) 40.3 % (22.0-44.0); MEAN CORPUSCULAR HEMOGLOBIN 33.7 pg (26.0-34.0); MEAN CORPUSCULAR HGB CONC 33.4 G/dL (31.0-37.0); MEAN CORPUSCULAR VOLUME 101 fL (80-100); MONOCYTES # (AUTO) 0.7 K/uL (0.1-1.0); MONOCYTES % (AUTO) 11.5 % (2.0-9.0); NEUTROPHILS # (AUTO) 2.7 K/uL (1.8-7.7); NEUTROPHILS % (AUTO) 46.5 % (40.0-70.0); PLATELET COUNT (AUTO) 170 K/uL (150-450); RED CELL DISTRIBUTION WIDTH 14.1 % (11.5-14.5)
[2018-05-01 03:08] LABS: CALCIUM, TOTAL 9.2 mg/dL (8.8-10.5); CREATININE 1.64 mg/dL (0.60-1.30); POTASSIUM 3.8 mmol/L (3.5-5.1)
[2018-05-01 03:14] LABS: ALBUMIN 3.3 g/dL (3.4-5.0); BILIRUBIN,TOTAL 0.3 mg/dL (0.1-1.0); TOTAL PROTEIN, SERUM 7.6 g/dL (6.4-8.2)
[2018-05-01 05:06] VITALS: BP 99/65
== END 2018-05-01 05:10 | disposition home or self-care (01) ==
LOC: EMS 00:30
DX: E86.0 Dehydration (principal); F10.129 Alcohol abuse with intoxication, unspecified; F32.9 Major depressive disorder, single episode, unspecified; G89.29 Other chronic pain; Y90.8 Blood alcohol level of 240 mg/100 ml or more
CPT/HCPCS: 36415; 80053; 85025; 99283; G0480

== ENCOUNTER 2018-05-16 11:24 | Inpatient (IN) | payer MEDICARE, MEDICAID ==
[2018-05-16] VITALS (10 sets, daily range): BP systolic 113–139; BP diastolic 72–90
[~2018-05-16] VITALS: Ht 170.2 cm; Wt 78.6 kg
[~2018-05-16 11:24] MED LIST changes: -ASPI81 PO; +DSS100 PO; -FOLI1 PO; -MAGOX PO; -MULT-248 PO; +MVITFE PO; +OMEP20 PO; -RISP1 PO; +RISP3 PO; +RISPC50 IM; -SIMV-260 PO
[2018-05-16] MEDS ORDERED: HALOPERIDOL 5 MG TABLET PO PRN (12:00)
[2018-05-16] MEDS ORDERED: LORazepam 2 MG TABLET PO PRN (12:00)
[2018-05-16] MEDS ORDERED: ZOLPIDEM TARTRATE 10 MG TABLET PO PRN (12:00)
[2018-05-16] MEDS ORDERED: PNEUMOCOCCAL VACCINE POLYVALENT 0.5 ML VIAL [PPSV23] IM ONE (12:30)
[2018-05-16] MEDS: RisperiDONE 1 MG TABLET PO SCH (20:36)
[2018-05-17 02:55] VITALS: BP 137/89
[2018-05-17 06:50] VITALS: BP 132/86
[2018-05-17] MEDS ORDERED: MAG HYDROX/AL HYDROX/SIMETH ES 30 ML SUSPENSION UDCUP PO PRN (08:00)
[2018-05-17] MEDS ORDERED: BACITRACIN 28.4 GM OINTMENT TP PRN (08:00)
[2018-05-17] MEDS ORDERED: ALBUTEROL SULFATE HFA 90 MCG/PUFF 8 GM INHALER IH PRN (08:00)
[2018-05-17] MEDS ORDERED: MAGNESIUM HYDROXIDE SUSPENSION 30 ML UDCUP PO PRN (08:00)
[2018-05-17] MEDS ORDERED: ONDANSETRON HCL 4 MG TABLET PO PRN (08:00)
[2018-05-17] MEDS ORDERED: BENZOCAINE/MENTHOL LOZENGE MM PRN (08:00)
[2018-05-17] MEDS ORDERED: ACETAMINOPHEN 325 MG TABLET PO PRN (08:00)
[2018-05-17] MEDS ORDERED: LOPERAMIDE HCL 2 MG CAPSULE PO PRN (08:00)
[2018-05-17] MEDS ORDERED: IBUPROFEN 600 MG TABLET PO PRN (08:00)
[2018-05-17] MEDS ORDERED: CloNIDine HCL 0.1 MG TABLET PO PRN (08:00)
[2018-05-17] MEDS ORDERED: PETROLATUM,WHITE 71 GM JELLY TP PRN (08:00)
[2018-05-17 08:09] VITALS: BP 137/96
[2018-05-17 08:15] VITALS: BP 137/96
[2018-05-17 08:27] LABS: BASOPHILS % (AUTO) 0.5 % (0.0-2.0); EOSINOPHILS % (AUTO) 0.7 % (1.0-6.0); HEMATOCRIT 39.6 % (41-53); HEMOGLOBIN 13.4 g/dL (13.5-17.5); LYMPHOCYTES # (AUTO) 1.4 K/uL (1.0-4.8); LYMPHOCYTES % (AUTO) 26.4 % (22.0-44.0); MEAN CORPUSCULAR HEMOGLOBIN 33.6 pg (26.0-34.0); MEAN CORPUSCULAR HGB CONC 33.7 G/dL (31.0-37.0); MEAN CORPUSCULAR VOLUME 100 fL (80-100); MONOCYTES # (AUTO) 0.7 K/uL (0.1-1.0); MONOCYTES % (AUTO) 12.4 % (2.0-9.0); NEUTROPHILS # (AUTO) 3.2 K/uL (1.8-7.7); PLATELET COUNT (AUTO) 227 K/uL (150-450); RED BLOOD CELL COUNT(AUTO) 3.97 MIL/uL (4.50-5.90); RED CELL DISTRIBUTION WIDTH 14.3 % (11.5-14.5)
[2018-05-17 08:45] LABS: ALANINE AMINOTRANSFERASE 61 U/L (12-78); ALBUMIN 3.5 g/dL (3.4-5.0); ALKALINE PHOSPHATASE 100 U/L (46-116); ANION GAP 9 mmol/L (8-16); ASPARTATE AMINOTRANSFERASE 59 U/L (15-37); BILIRUBIN,TOTAL 0.4 mg/dL (0.1-1.0); CALCIUM, TOTAL 9.6 mg/dL (8.8-10.5); CARBON DIOXIDE 27 mmol/L (22-29); CHLORIDE 103 mmol/L (98-107); CHOL/HDL RATIO 2.1 (4.2-7.3); CHOLESTEROL 196 mg/dL (131-200); CREATININE 0.87 mg/dL (0.60-1.30); FREE T4 (FREE THYROXINE) 0.92 ng/dL (0.76-1.46); GLUCOSE,RANDOM 120 mg/dL (70-110); HDL CHOLESTEROL 94 mg/dL (40-60); LDL CHOL (CALC.) 97 mg/dL (0-130); POTASSIUM 3.9 mmol/L (3.5-5.1); SODIUM SERUM 139 mmol/L (136-145); TOTAL PROTEIN, SERUM 8.1 g/dL (6.4-8.2); TRIGLYCERIDES 25 mg/dL (15-150); UREA NITROGEN, BLOOD 10 mg/dL (7-18)
[2018-05-17 08:50] LABS: GLOMERULAR FILTR. RATE CALC > 60 mL/min (>60)
[2018-05-17] MEDS: FLUoxetine HCL 20 MG CAPSULE PO SCH (08:50)
[2018-05-17] MEDS: OMEPRAZOLE 20 MG CAPSULE PO SCH (08:50)
[2018-05-17] MEDS: DOCUSATE SODIUM 100 MG CAPSULE PO SCH (08:50)
[2018-05-17 09:27] LABS: HEMOGLOBIN A1C 6.8 % (4.5-6.2)
[2018-05-17 12:15] VITALS: BP 139/89
[2018-05-17 16:45] VITALS: BP 144/98
[2018-05-17] MEDS: RisperiDONE 1 MG TABLET PO SCH (20:34)
[2018-05-18 06:12] VITALS: BP 126/80
[2018-05-18 08:07] VITALS: BP 116/79
[2018-05-18] MEDS: DOCUSATE SODIUM 100 MG CAPSULE PO SCH (08:20)
[2018-05-18] MEDS: OMEPRAZOLE 20 MG CAPSULE PO SCH (08:20)
[2018-05-18] MEDS: FLUoxetine HCL 20 MG CAPSULE PO SCH (08:20)
[2018-05-18 16:08] VITALS: BP 126/80
[2018-05-18] MEDS: RisperiDONE 1 MG TABLET PO SCH (20:33)
[2018-05-19 05:12] VITALS: BP 128/82
[2018-05-19 08:19] VITALS: BP 124/84
[2018-05-19] MEDS: OMEPRAZOLE 20 MG CAPSULE PO SCH (08:25)
[2018-05-19] MEDS: FLUoxetine HCL 20 MG CAPSULE PO SCH (08:25)
[2018-05-19] MEDS: DOCUSATE SODIUM 100 MG CAPSULE PO SCH (08:25)
[2018-05-19 16:04] VITALS: BP 140/84
[2018-05-19] MEDS: RisperiDONE 1 MG TABLET PO SCH (20:11)
[2018-05-20 08:32] VITALS: BP 118/82
[2018-05-20] MEDS: DOCUSATE SODIUM 100 MG CAPSULE PO SCH (08:32)
[2018-05-20] MEDS: FLUoxetine HCL 20 MG CAPSULE PO SCH (08:32)
[2018-05-20] MEDS: OMEPRAZOLE 20 MG CAPSULE PO SCH (08:32)
[2018-05-20] MEDS ORDERED: RISP1 PO (09:36)
== END 2018-05-20 13:00 | disposition home or self-care (01) | DRG 885 ==
LOC: B2X 11:59
PROVIDERS: ADMIT Psychiatry & Neurology Psychiatry; ATTEND Psychiatry & Neurology Psychiatry
DX: F25.9 Schizoaffective disorder, unspecified (principal); R45.851 Suicidal ideations; B18.2 Chronic viral hepatitis C; E11.9 Type 2 diabetes mellitus without complications; E78.5 Hyperlipidemia, unspecified; G47.00 Insomnia, unspecified; I10 Essential (primary) hypertension; J44.9 Chronic obstructive pulmonary disease, unspecified; M19.90 Unspecified osteoarthritis, unspecified site; R26.9 Unspecified abnormalities of gait and mobility; F41.9 Anxiety disorder, unspecified; Z56.0 Unemployment, unspecified; Z79.899 Other long term (current) drug therapy
CPT/HCPCS: 83036; 84439; 84443; 87081

== ENCOUNTER 2018-05-22 15:39 | Emergency (ER) | payer MEDICARE, MEDICAID ==
[~2018-05-22] VITALS: Ht 170.2 cm; Wt 72.7 kg
[~2018-05-22 15:39] MED LIST changes: -MVITFE PO; +RISP1 PO; -RISP3 PO; -RISPC50 IM
[2018-05-22 18:14] LABS: GLUCOSE,POINT OF CARE 144 MG/DL (70-110)
[2018-05-22 19:35] VITALS: BP 111/68
== END 2018-05-22 20:15 | disposition home or self-care (01) ==
LOC: EMS 15:41
DX: F10.129 Alcohol abuse with intoxication, unspecified (principal); F32.9 Major depressive disorder, single episode, unspecified; F17.210 Nicotine dependence, cigarettes, uncomplicated; G89.29 Other chronic pain
CPT/HCPCS: 82948; 99406

== ENCOUNTER 2018-05-27 10:56 | Inpatient (IN) | payer MEDICARE, MEDICAID ==
[~2018-05-27] VITALS: Ht 167.6 cm; Wt 77.3 kg
[2018-05-27 12:09] LABS: GLUCOSE,POINT OF CARE 111 MG/DL (70-110)
[2018-05-27 12:14] LABS: BASOPHILS % (AUTO) 1.3 % (0.0-2.0); EOSINOPHILS % (AUTO) 1.4 % (1.0-6.0); HEMATOCRIT 38.3 % (41-53); HEMOGLOBIN 12.8 g/dL (13.5-17.5); LYMPHOCYTES # (AUTO) 2.1 K/uL (1.0-4.8); LYMPHOCYTES % (AUTO) 51.3 % (22.0-44.0); MEAN CORPUSCULAR HEMOGLOBIN 33.1 pg (26.0-34.0); MEAN CORPUSCULAR HGB CONC 33.3 G/dL (31.0-37.0); MEAN CORPUSCULAR VOLUME 99 fL (80-100); MONOCYTES # (AUTO) 0.5 K/uL (0.1-1.0); MONOCYTES % (AUTO) 11.9 % (2.0-9.0); NEUTROPHILS # (AUTO) 1.4 K/uL (1.8-7.7); NEUTROPHILS % (AUTO) 34.1 % (40.0-70.0); PLATELET COUNT (AUTO) 201 K/uL (150-450); RED BLOOD CELL COUNT(AUTO) 3.85 MIL/uL (4.50-5.90); RED CELL DISTRIBUTION WIDTH 14.1 % (11.5-14.5)
[2018-05-27 12:28] LABS: ANION GAP 14 mmol/L (8-16); CALCIUM, TOTAL 8.9 mg/dL (8.8-10.5); CARBON DIOXIDE 24 mmol/L (22-29); CHLORIDE 105 mmol/L (98-107); CREATININE 0.95 mg/dL (0.60-1.30); GLUCOSE,RANDOM 126 mg/dL (70-110); POTASSIUM 4.2 mmol/L (3.5-5.1); SODIUM SERUM 143 mmol/L (136-145); UREA NITROGEN, BLOOD 13 mg/dL (7-18)
[2018-05-27 12:34] LABS: ALANINE AMINOTRANSFERASE 66 U/L (12-78); ALBUMIN 3.6 g/dL (3.4-5.0); ALKALINE PHOSPHATASE 65 U/L (46-116); ASPARTATE AMINOTRANSFERASE 87 U/L (15-37); BILIRUBIN,TOTAL 0.4 mg/dL (0.1-1.0); TOTAL PROTEIN, SERUM 7.9 g/dL (6.4-8.2)
[2018-05-27 12:40] LABS: GLOMERULAR FILTR. RATE CALC > 60 mL/min (>60)
[2018-05-27 13:28] LABS: AMPHET/METH SCREEN,URINE NEGATIVE (NEGATIVE); BARBITURATE SCREEN, URINE NEGATIVE (NEGATIVE); BENZODIAZEPINES SCREEN,URINE NEGATIVE (NEGATIVE); CANNABINOID SCREEN,URINE NEGATIVE (NEGATIVE); COCAINE SCREEN,URINE NEGATIVE (NEGATIVE); METHADONE SCREEN, URINE NEGATIVE (NEGATIVE); OPIATE SCREEN,URINE NEGATIVE (NEGATIVE)
[2018-05-27 13:29] LABS: PHENCYCLIDINE SCREEN,URINE NEGATIVE (NEGATIVE)
[2018-05-27] MEDS ORDERED: LORazepam 2 MG TABLET PO PRN (14:45)
[2018-05-27] MEDS ORDERED: HALOPERIDOL 5 MG TABLET PO PRN (14:45)
[2018-05-27] MEDS ORDERED: ZOLPIDEM TARTRATE 10 MG TABLET PO PRN (14:45)
[2018-05-27] MEDS ORDERED: IBUPROFEN 600 MG TABLET PO ONE (18:00)
[2018-05-27 21:05] VITALS: BP 136/80
[2018-05-27 21:10] VITALS: BP 136/80
[2018-05-27 21:24] LABS: GLUCOMETER DEV NAME(LOC) BV2S.; GLUCOSE,POINT OF CARE 110 MG/DL (70-110)
[2018-05-27] MEDS ORDERED: ACETAMINOPHEN 325 MG TABLET PO PRN (21:30)
[2018-05-27] MEDS ORDERED: MAG HYDROX/AL HYDROX/SIMETH ES 30 ML SUSPENSION UDCUP PO PRN (21:30)
[2018-05-27] MEDS ORDERED: LOPERAMIDE HCL 2 MG CAPSULE PO PRN (21:30)
[2018-05-27] MEDS ORDERED: ONDANSETRON HCL 4 MG TABLET PO PRN (21:30)
[2018-05-27] MEDS ORDERED: BACITRACIN 28.4 GM OINTMENT TP PRN (21:30)
[2018-05-27] MEDS ORDERED: MAGNESIUM HYDROXIDE SUSPENSION 30 ML UDCUP PO PRN (21:30)
[2018-05-27] MEDS ORDERED: PETROLATUM,WHITE 28 GM JELLY TP PRN (21:30)
[2018-05-27] MEDS ORDERED: BENZOCAINE/MENTHOL LOZENGE MM PRN (21:30)
[2018-05-27] MEDS ORDERED: CloNIDine HCL 0.1 MG TABLET PO PRN (21:30)
[2018-05-27] MEDS ORDERED: ALBUTEROL SULFATE HFA 90 MCG/PUFF 8 GM INHALER IH PRN (21:30)
[2018-05-27 22:08] VITALS: BP 116/84
[2018-05-27 23:05] VITALS: BP 114/83
[2018-05-28] VITALS (11 sets, daily range): BP systolic 107–157; BP diastolic 84–118
[2018-05-28] MEDS ORDERED: GLUCAGON,HUMAN RECOMBINANT 1 MG VIAL IM PRN (07:00)
[2018-05-28] MEDS: IBUPROFEN 600 MG TABLET PO PRN (08:38)
[2018-05-28] MEDS: DOCUSATE SODIUM 100 MG CAPSULE PO SCH (08:38)
[2018-05-28] MEDS: OMEPRAZOLE 20 MG CAPSULE PO SCH (08:38)
[2018-05-28 12:04] LABS: GLUCOMETER DEV NAME(LOC) BV2S.; GLUCOSE,POINT OF CARE 138 MG/DL (70-110)
[2018-05-28] MEDS: LISINOPRIL 10 MG TABLET PO SCH (12:38)
[2018-05-28] MEDS: FLUoxetine HCL 20 MG CAPSULE PO SCH (12:40)
[2018-05-28 16:29] LABS: GLUCOMETER DEV NAME(LOC) BV2S.; GLUCOSE,POINT OF CARE 103 MG/DL (70-110)
[2018-05-28 20:41] LABS: GLUCOMETER DEV NAME(LOC) BV2S.; GLUCOSE,POINT OF CARE 142 MG/DL (70-110)
[2018-05-28] MEDS: RisperiDONE 1 MG TABLET PO SCH (20:53)
[2018-05-28] MEDS: INSULIN LISPRO 100 UNITS/ML SQ PRN (21:04)
[2018-05-29] VITALS (7 sets, daily range): BP systolic 96–112; BP diastolic 60–93
[2018-05-29 06:19] LABS: GLUCOMETER DEV NAME(LOC) BV2S.; GLUCOSE,POINT OF CARE 137 MG/DL (70-110)
[2018-05-29 08:54] LABS: HEMATOCRIT 42.5 % (41-53); HEMOGLOBIN 14.3 g/dL (13.5-17.5); MEAN CORPUSCULAR HEMOGLOBIN 33.8 pg (26.0-34.0); MEAN CORPUSCULAR HGB CONC 33.7 G/dL (31.0-37.0); MEAN CORPUSCULAR VOLUME 100 fL (80-100); PLATELET COUNT (AUTO) 194 K/uL (150-450); RED BLOOD CELL COUNT(AUTO) 4.25 MIL/uL (4.50-5.90); RED CELL DISTRIBUTION WIDTH 14.2 % (11.5-14.5)
[2018-05-29] MEDS: FLUoxetine HCL 20 MG CAPSULE PO SCH (09:31)
[2018-05-29] MEDS: LISINOPRIL 10 MG TABLET PO SCH (09:31)
[2018-05-29] MEDS: DOCUSATE SODIUM 100 MG CAPSULE PO SCH (09:31)
[2018-05-29] MEDS: OMEPRAZOLE 20 MG CAPSULE PO SCH (09:32)
[2018-05-29 10:04] LABS: ANION GAP 11 mmol/L (8-16); CALCIUM, TOTAL 9.6 mg/dL (8.8-10.5); CARBON DIOXIDE 26 mmol/L (22-29); CHLORIDE 99 mmol/L (98-107); CHOL/HDL RATIO 2.2 (4.2-7.3); CHOLESTEROL 216 mg/dL (131-200); CREATININE 1.25 mg/dL (0.60-1.30); GLOMERULAR FILTR. RATE CALC > 60 mL/min (>60); GLUCOSE,RANDOM 117 mg/dL (70-110); HDL CHOLESTEROL 100 mg/dL (40-60); LDL CHOL (CALC.) 103 mg/dL (0-130); PHOSPHORUS 3.6 mg/dL (2.5-4.9); POTASSIUM 3.9 mmol/L (3.5-5.1); SODIUM SERUM 136 mmol/L (136-145); TRIGLYCERIDES 67 mg/dL (15-150); UREA NITROGEN, BLOOD 18 mg/dL (7-18)
[2018-05-29 10:21] LABS: BAND NEUTROPHILS % (MANUAL) 1 % (0-5); LYMPHOCYTES % (MANUAL) 18 % (22-44); MONOCYTES % (MANUAL) 6 % (2-9); SEGMENTED NEUTROPHILS % 75 % (40-70)
[2018-05-29] MEDS: IBUPROFEN 600 MG TABLET PO PRN (11:02)
[2018-05-29 11:14] LABS: GLUCOMETER DEV NAME(LOC) BV2S.; GLUCOSE,POINT OF CARE 94 MG/DL (70-110)
[2018-05-29 16:20] LABS: GLUCOMETER DEV NAME(LOC) BV2S.; GLUCOSE,POINT OF CARE 125 MG/DL (70-110)
[2018-05-29 20:24] LABS: GLUCOMETER DEV NAME(LOC) BV2S.; GLUCOSE,POINT OF CARE 125 MG/DL (70-110)
[2018-05-29] MEDS: RisperiDONE 1 MG TABLET PO SCH (20:37)
[2018-05-30 00:37] VITALS: BP 141/83
[2018-05-30 06:20] LABS: GLUCOMETER DEV NAME(LOC) BV2S.; GLUCOSE,POINT OF CARE 111 MG/DL (70-110)
[2018-05-30 08:16] VITALS: BP 108/58
[2018-05-30 08:18] VITALS: BP 108/58
[2018-05-30] MEDS: DOCUSATE SODIUM 100 MG CAPSULE PO SCH (08:25)
[2018-05-30] MEDS: FLUoxetine HCL 20 MG CAPSULE PO SCH (08:25)
[2018-05-30] MEDS: OMEPRAZOLE 20 MG CAPSULE PO SCH (08:25)
[2018-05-30 08:32] LABS: % IRON SATURATION 33.8 % (30-44)
[2018-05-30] MEDS: LISINOPRIL 10 MG TABLET PO SCH (08:32)
[2018-05-30] MEDS ORDERED: TUBERCULIN, PURIFIED PROTEIN DERIVATIVE 5 TU/0.1 ML SYRINGE ID ONE (08:45)
[2018-05-30 10:25] VITALS: BP 117/70
[2018-05-30 11:04] LABS: GLUCOMETER DEV NAME(LOC) BV2S.; GLUCOSE,POINT OF CARE 97 MG/DL (70-110)
[2018-05-30 16:06] VITALS: BP 134/89
[2018-05-30 16:24] LABS: GLUCOMETER DEV NAME(LOC) BV2S.; GLUCOSE,POINT OF CARE 108 MG/DL (70-110)
[2018-05-30 20:24] LABS: GLUCOMETER DEV NAME(LOC) BV2S.; GLUCOSE,POINT OF CARE 189 MG/DL (70-110)
[2018-05-30] MEDS: INSULIN LISPRO 100 UNITS/ML SQ PRN (20:36)
[2018-05-30] MEDS: RisperiDONE 1 MG TABLET PO SCH (21:48)
[2018-05-31 06:25] LABS: GLUCOMETER DEV NAME(LOC) BV2S.; GLUCOSE,POINT OF CARE 104 MG/DL (70-110)
[2018-05-31 08:20] VITALS: BP 118/78
[2018-05-31] MEDS: FLUoxetine HCL 20 MG CAPSULE PO SCH (08:28)
[2018-05-31] MEDS: LISINOPRIL 10 MG TABLET PO SCH (08:28)
[2018-05-31] MEDS: OMEPRAZOLE 20 MG CAPSULE PO SCH (08:28)
[2018-05-31] MEDS: DOCUSATE SODIUM 100 MG CAPSULE PO SCH (08:28)
[2018-05-31] MEDS: INSULIN LISPRO 100 UNITS/ML SQ PRN ×2 (10:58→16:43)
[2018-05-31 11:04] LABS: GLUCOMETER DEV NAME(LOC) BV2S.; GLUCOSE,POINT OF CARE 228 MG/DL (70-110)
[2018-05-31] MEDS ORDERED: LISI-661 PO (15:10)
[2018-05-31 16:24] LABS: GLUCOMETER DEV NAME(LOC) BV2S.; GLUCOSE,POINT OF CARE 153 MG/DL (70-110)
[2018-05-31 16:52] VITALS: BP 109/77
[2018-05-31] MEDS: IBUPROFEN 600 MG TABLET PO PRN (18:42)
[2018-05-31 18:43] VITALS: BP 114/82
== END 2018-05-31 19:05 | disposition home or self-care (01) | DRG 885 ==
LOC: EMS 10:56 → B2X 19:18
PROVIDERS: ADMIT Psychiatry & Neurology Psychiatry; ATTEND Psychiatry & Neurology Psychiatry
DX: F25.9 Schizoaffective disorder, unspecified (principal); R45.851 Suicidal ideations; F41.9 Anxiety disorder, unspecified; B18.2 Chronic viral hepatitis C; E11.9 Type 2 diabetes mellitus without complications; E78.5 Hyperlipidemia, unspecified; F10.229 Alcohol dependence with intoxication, unspecified; F17.210 Nicotine dependence, cigarettes, uncomplicated; G47.00 Insomnia, unspecified; I10 Essential (primary) hypertension; J44.9 Chronic obstructive pulmonary disease, unspecified; K70.30 Alcoholic cirrhosis of liver without ascites; M19.90 Unspecified osteoarthritis, unspecified site; Z79.899 Other long term (current) drug therapy
CPT/HCPCS: 83036; 83540; 83550; 83735; 84100; 84443; 85007; 87081; G0480

== ENCOUNTER 2018-06-09 22:11 | Emergency (ER) | payer MEDICARE, MEDICAID ==
[~2018-06-09] VITALS: Ht 170.2 cm; Wt 78.2 kg
[~2018-06-09 22:11] MED LIST changes: +LISI-661 PO
[2018-06-10 03:37] LABS: BASOPHILS % (AUTO) 2.5 % (0.0-2.0); EOSINOPHILS % (AUTO) 0.6 % (1.0-6.0); HEMATOCRIT 38.4 % (41-53); HEMOGLOBIN 12.6 g/dL (13.5-17.5); LYMPHOCYTES # (AUTO) 2.3 K/uL (1.0-4.8); LYMPHOCYTES % (AUTO) 26.9 % (22.0-44.0); MEAN CORPUSCULAR HEMOGLOBIN 33.3 pg (26.0-34.0); MEAN CORPUSCULAR HGB CONC 32.9 G/dL (31.0-37.0); MEAN CORPUSCULAR VOLUME 101 fL (80-100); MONOCYTES # (AUTO) 0.9 K/uL (0.1-1.0); MONOCYTES % (AUTO) 10.8 % (2.0-9.0); NEUTROPHILS % (AUTO) 59.2 % (40.0-70.0); RED CELL DISTRIBUTION WIDTH 14.2 % (11.5-14.5)
[2018-06-10 03:45] LABS: CALCIUM, TOTAL 9.3 mg/dL (8.8-10.5); CREATININE 1.58 mg/dL (0.60-1.30); POTASSIUM 4.4 mmol/L (3.5-5.1)
[2018-06-10 03:50] LABS: ALBUMIN 3.5 g/dL (3.4-5.0); BILIRUBIN,TOTAL 0.3 mg/dL (0.1-1.0); TOTAL PROTEIN, SERUM 8.1 g/dL (6.4-8.2)
[2018-06-10 03:57] LABS: PLATELET COUNT (AUTO) 140 K/uL (150-450)
[2018-06-10 04:39] LABS: AMPHET/METH SCREEN,URINE NEGATIVE (NEGATIVE); BARBITURATE SCREEN, URINE NEGATIVE (NEGATIVE); BENZODIAZEPINES SCREEN,URINE NEGATIVE (NEGATIVE); CANNABINOID SCREEN,URINE NEGATIVE (NEGATIVE); COCAINE SCREEN,URINE NEGATIVE (NEGATIVE); METHADONE SCREEN, URINE NEGATIVE (NEGATIVE); OPIATE SCREEN,URINE NEGATIVE (NEGATIVE)
[2018-06-10 04:41] LABS: PHENCYCLIDINE SCREEN,URINE NEGATIVE (NEGATIVE)
[2018-06-10 09:11] VITALS: BP 134/84
== END 2018-06-10 09:44 | disposition short-term general hospital (02) ==
LOC: EMS 22:12
DX: F25.9 Schizoaffective disorder, unspecified (principal); F32.9 Major depressive disorder, single episode, unspecified; F10.129 Alcohol abuse with intoxication, unspecified; F17.210 Nicotine dependence, cigarettes, uncomplicated; G89.29 Other chronic pain; F14.90 Cocaine use, unspecified, uncomplicated; Z79.899 Other long term (current) drug therapy; Y90.8 Blood alcohol level of 240 mg/100 ml or more
CPT/HCPCS: 36415; 80053; 80307; 85025; 99285; 99406; G0480

== ENCOUNTER 2018-07-12 10:40 | Emergency (ER) | payer MEDICARE, MEDICAID ==
[~2018-07-12] VITALS: Ht 170.2 cm; Wt 74.1 kg
[~2018-07-12 10:40] MED LIST changes: +FOLI1 PO; +THIA100T67 PO
[2018-07-12] MEDS ORDERED: SODIUM CHLORIDE 0.9% 500 ML IV ONE (13:42)
[2018-07-12 15:14] VITALS: BP 131/75
== END 2018-07-12 15:15 | disposition home or self-care (01) ==
LOC: EMS 10:42
DX: F10.129 Alcohol abuse with intoxication, unspecified (principal); R51 Headache; F32.9 Major depressive disorder, single episode, unspecified; G89.29 Other chronic pain; F17.210 Nicotine dependence, cigarettes, uncomplicated; F14.90 Cocaine use, unspecified, uncomplicated; Z79.899 Other long term (current) drug therapy
CPT/HCPCS: 70450; 99284; J7040

== ENCOUNTER 2018-08-03 12:31 | Emergency (ER) | payer MEDICARE, MEDICAID ==
[~2018-08-03] VITALS: Ht 170.2 cm; Wt 75.0 kg
[2018-08-03 13:54] VITALS: BP 130/92
[2018-08-03] MEDS ORDERED: ChlordiazePOXIDE HCL 25 MG CAPSULE PO ONE (14:15)
== END 2018-08-03 14:51 | disposition home or self-care (01) ==
LOC: EMS 12:31
DX: F10.239 Alcohol dependence with withdrawal, unspecified (principal); F32.9 Major depressive disorder, single episode, unspecified; G89.29 Other chronic pain; R45.851 Suicidal ideations; F17.210 Nicotine dependence, cigarettes, uncomplicated; F14.90 Cocaine use, unspecified, uncomplicated
CPT/HCPCS: 99406

== ENCOUNTER 2018-08-05 12:52 | Emergency (ER) | payer MEDICARE, MEDICAID ==
[~2018-08-05] VITALS: Ht 188 cm; Wt 86.4 kg
[2018-08-05] MEDS ORDERED: SODIUM CHLORIDE 0.9% 1,000 ML IV ONE (15:00)
[2018-08-05 15:29] LABS: EOSINOPHILS % (AUTO) 1.6 % (1.0-6.0); HEMATOCRIT 31.6 % (41-53); HEMOGLOBIN 10.6 g/dL (13.5-17.5); LYMPHOCYTES # (AUTO) 0.9 K/uL (1.0-4.8); LYMPHOCYTES % (AUTO) 19.2 % (22.0-44.0); MEAN CORPUSCULAR HEMOGLOBIN 33.3 pg (26.0-34.0); MEAN CORPUSCULAR HGB CONC 33.5 G/dL (31.0-37.0); MEAN CORPUSCULAR VOLUME 99 fL (80-100); MONOCYTES # (AUTO) 0.4 K/uL (0.1-1.0); MONOCYTES % (AUTO) 8.5 % (2.0-9.0); NEUTROPHILS # (AUTO) 3.3 K/uL (1.8-7.7); NEUTROPHILS % (AUTO) 69.7 % (40.0-70.0); PLATELET COUNT (AUTO) 252 K/uL (150-450); RED BLOOD CELL COUNT(AUTO) 3.18 MIL/uL (4.50-5.90); RED CELL DISTRIBUTION WIDTH 14.1 % (11.5-14.5)
[2018-08-05 15:45] LABS: ANION GAP 9 mmol/L (8-16); CALCIUM, TOTAL 8.8 mg/dL (8.8-10.5); CARBON DIOXIDE 25 mmol/L (22-29); CHLORIDE 111 mmol/L (98-107); CREATININE 1.27 mg/dL (0.60-1.30); GLOMERULAR FILTR. RATE CALC > 60 mL/min (>60); GLUCOSE,RANDOM 129 mg/dL (70-110); POTASSIUM 4.3 mmol/L (3.5-5.1); SODIUM SERUM 145 mmol/L (136-145); UREA NITROGEN, BLOOD 22 mg/dL (7-18)
[2018-08-05 15:51] LABS: ALANINE AMINOTRANSFERASE 50 U/L (12-78); ALBUMIN 2.6 g/dL (3.4-5.0); ALKALINE PHOSPHATASE 58 U/L (46-116); ASPARTATE AMINOTRANSFERASE 80 U/L (15-37); BILIRUBIN,TOTAL 0.2 mg/dL (0.1-1.0)
[2018-08-05 19:44] VITALS: BP 146/78
== END 2018-08-05 20:41 | disposition home or self-care (01) ==
LOC: EMS 12:56
DX: F10.229 Alcohol dependence with intoxication, unspecified (principal); F32.9 Major depressive disorder, single episode, unspecified; F17.210 Nicotine dependence, cigarettes, uncomplicated; F14.90 Cocaine use, unspecified, uncomplicated; Y90.7 Blood alcohol level of 200-239 mg/100 ml
CPT/HCPCS: 36415; 80053; 85025; 99283; 99406; G0480; J7030

== ENCOUNTER 2018-08-06 23:02 | Inpatient (IN) | payer MEDICARE, MEDICAID ==
[~2018-08-06] VITALS: Ht 165.1 cm; Wt 76.2 kg
[2018-08-07 00:27] LABS: BASOPHILS % (AUTO) 1.6 % (0.0-2.0); EOSINOPHILS % (AUTO) 3.8 % (1.0-6.0); HEMATOCRIT 34.2 % (41-53); HEMOGLOBIN 11.4 g/dL (13.5-17.5); LYMPHOCYTES # (AUTO) 1.7 K/uL (1.0-4.8); LYMPHOCYTES % (AUTO) 39.7 % (22.0-44.0); MEAN CORPUSCULAR HEMOGLOBIN 33.2 pg (26.0-34.0); MEAN CORPUSCULAR HGB CONC 33.3 G/dL (31.0-37.0); MEAN CORPUSCULAR VOLUME 100 fL (80-100); MONOCYTES # (AUTO) 0.5 K/uL (0.1-1.0); MONOCYTES % (AUTO) 12.5 % (2.0-9.0); NEUTROPHILS # (AUTO) 1.8 K/uL (1.8-7.7); NEUTROPHILS % (AUTO) 42.4 % (40.0-70.0); PLATELET COUNT (AUTO) 251 K/uL (150-450); RED BLOOD CELL COUNT(AUTO) 3.44 MIL/uL (4.50-5.90); RED CELL DISTRIBUTION WIDTH 14.1 % (11.5-14.5)
[2018-08-07 00:38] LABS: ANION GAP 11 mmol/L (8-16); CALCIUM, TOTAL 8.5 mg/dL (8.8-10.5); CARBON DIOXIDE 24 mmol/L (22-29); CHLORIDE 110 mmol/L (98-107); CREATININE 0.94 mg/dL (0.60-1.30); GLUCOSE,RANDOM 122 mg/dL (70-110); POTASSIUM 3.9 mmol/L (3.5-5.1); SODIUM SERUM 145 mmol/L (136-145); UREA NITROGEN, BLOOD 12 mg/dL (7-18)
[2018-08-07 00:41] LABS: GLOMERULAR FILTR. RATE CALC > 60 mL/min (>60)
[2018-08-07 00:46] LABS: ALANINE AMINOTRANSFERASE 54 U/L (12-78); ALBUMIN 2.7 g/dL (3.4-5.0); ALKALINE PHOSPHATASE 60 U/L (46-116); ASPARTATE AMINOTRANSFERASE 95 U/L (15-37); BILIRUBIN,TOTAL 0.2 mg/dL (0.1-1.0); TOTAL PROTEIN, SERUM 7.4 g/dL (6.4-8.2)
[2018-08-07] MEDS ORDERED: HALOPERIDOL 5 MG TABLET PO PRN (08:00)
[2018-08-07 12:20] VITALS: BP 141/100
[2018-08-07 13:07] VITALS: BP 141/100
[2018-08-07 13:20] VITALS: BP 152/117
[2018-08-07] MEDS ORDERED: ACETAMINOPHEN 325 MG TABLET PO PRN (14:00)
[2018-08-07] MEDS ORDERED: CloNIDine HCL 0.1 MG TABLET PO PRN (14:00)
[2018-08-07] MEDS ORDERED: PETROLATUM,WHITE 28 GM JELLY TP PRN (14:00)
[2018-08-07] MEDS ORDERED: MAGNESIUM HYDROXIDE SUSPENSION 30 ML UDCUP PO PRN (14:00)
[2018-08-07] MEDS ORDERED: BENZOCAINE/MENTHOL LOZENGE MM PRN (14:00)
[2018-08-07] MEDS ORDERED: BACITRACIN 28.4 GM OINTMENT TP PRN (14:00)
[2018-08-07] MEDS ORDERED: MAG HYDROX/AL HYDROX/SIMETH ES 30 ML SUSPENSION UDCUP PO PRN (14:00)
[2018-08-07] MEDS ORDERED: LOPERAMIDE HCL 2 MG CAPSULE PO PRN (14:00)
[2018-08-07] MEDS ORDERED: ALBUTEROL SULFATE HFA 90 MCG/PUFF 8 GM INHALER IH PRN (14:00)
[2018-08-07] MEDS ORDERED: ONDANSETRON HCL 4 MG TABLET PO PRN (14:00)
[2018-08-07] MEDS ORDERED: IBUPROFEN 600 MG TABLET PO PRN (14:00)
[2018-08-07] MEDS: LISINOPRIL 10 MG TABLET PO SCH (14:06)
[2018-08-07 14:20] VITALS: BP 144/94
[2018-08-07 16:04] VITALS: BP 133/86
[2018-08-07] MEDS: RisperiDONE 1 MG TABLET PO SCH (20:55)
[2018-08-07] MEDS: ZOLPIDEM TARTRATE 10 MG TABLET PO PRN (20:55)
[2018-08-07 23:30] VITALS: BP 120/71
[2018-08-08] VITALS (7 sets, daily range): BP systolic 103–140; BP diastolic 68–87
[2018-08-08] MEDS: LISINOPRIL 10 MG TABLET PO SCH (08:05)
[2018-08-08] MEDS: OMEPRAZOLE 20 MG CAPSULE PO SCH (08:05)
[2018-08-08] MEDS: DOCUSATE SODIUM 100 MG CAPSULE PO SCH (08:05)
[2018-08-08] MEDS: FLUoxetine HCL 20 MG CAPSULE PO SCH (08:05)
[2018-08-08] MEDS: RisperiDONE 1 MG TABLET PO SCH (20:04)
[2018-08-08] MEDS: ZOLPIDEM TARTRATE 10 MG TABLET PO PRN (20:04)
[2018-08-09 04:48] VITALS: BP 106/89
[2018-08-09 05:07] VITALS: BP 106/89
[2018-08-09 08:02] VITALS: BP 124/82
[2018-08-09] MEDS: LISINOPRIL 10 MG TABLET PO SCH (08:31)
[2018-08-09] MEDS: DOCUSATE SODIUM 100 MG CAPSULE PO SCH (08:31)
[2018-08-09] MEDS: FLUoxetine HCL 20 MG CAPSULE PO SCH (08:31)
[2018-08-09] MEDS: OMEPRAZOLE 20 MG CAPSULE PO SCH (08:31)
[2018-08-09 16:10] VITALS: BP 115/95
[2018-08-09 17:06] VITALS: BP 115/95
[2018-08-09] MEDS: RisperiDONE 1 MG TABLET PO SCH (20:37)
[2018-08-09] MEDS: ZOLPIDEM TARTRATE 10 MG TABLET PO PRN (20:37)
[2018-08-10 05:33] VITALS: BP 115/73
[2018-08-10 06:06] VITALS: BP 115/73
[2018-08-10 08:15] VITALS: BP 134/79
[2018-08-10] MEDS: FLUoxetine HCL 20 MG CAPSULE PO SCH (08:49)
[2018-08-10] MEDS: OMEPRAZOLE 20 MG CAPSULE PO SCH (08:49)
[2018-08-10] MEDS: DOCUSATE SODIUM 100 MG CAPSULE PO SCH (08:49)
[2018-08-10] MEDS: LISINOPRIL 10 MG TABLET PO SCH (08:49)
[2018-08-10 16:18] VITALS: BP 120/83
[2018-08-10] MEDS: LORazepam 2 MG TABLET PO PRN (16:19)
[2018-08-10] MEDS: RisperiDONE 1 MG TABLET PO SCH (20:38)
[2018-08-11 06:11] VITALS: BP 112/69
[2018-08-11 08:00] VITALS: BP 125/82
[2018-08-11] MEDS: DOCUSATE SODIUM 100 MG CAPSULE PO SCH (08:56)
[2018-08-11] MEDS: OMEPRAZOLE 20 MG CAPSULE PO SCH (08:56)
[2018-08-11] MEDS: FLUoxetine HCL 20 MG CAPSULE PO SCH (08:56)
[2018-08-11] MEDS: LISINOPRIL 10 MG TABLET PO SCH (08:57)
[2018-08-11] MEDS: LORazepam 2 MG TABLET PO PRN (16:51)
[2018-08-11 17:59] VITALS: BP 140/86
[2018-08-11] MEDS: RisperiDONE 1 MG TABLET PO SCH (20:40)
[2018-08-11] MEDS: ZOLPIDEM TARTRATE 10 MG TABLET PO PRN (20:40)
[2018-08-12 06:09] VITALS: BP 132/78
[2018-08-12] MEDS ORDERED: FLUO-191 PO (07:49)
[2018-08-12] MEDS ORDERED: LISI-661 PO (07:49)
[2018-08-12] MEDS ORDERED: RISP1 PO (07:49)
[2018-08-12 08:41] VITALS: BP 103/64
[2018-08-12] MEDS: LISINOPRIL 10 MG TABLET PO SCH (08:44)
[2018-08-12] MEDS: OMEPRAZOLE 20 MG CAPSULE PO SCH (08:44)
[2018-08-12] MEDS: DOCUSATE SODIUM 100 MG CAPSULE PO SCH (08:44)
[2018-08-12] MEDS: FLUoxetine HCL 20 MG CAPSULE PO SCH (08:45)
[2018-08-12] MEDS ORDERED: FLUoxetine HCL 20 MG CAPSULE PO SCH (09:00)
[2018-08-12] MEDS ORDERED: RisperiDONE 1 MG TABLET PO SCH (21:00)
== END 2018-08-12 13:33 | disposition home or self-care (01) | DRG 885 ==
LOC: EMS 23:23 → B3A 08-07 11:00
PROVIDERS: ADMIT Psychiatry & Neurology Psychiatry; ATTEND Psychiatry & Neurology Psychiatry
DX: F25.0 Schizoaffective disorder, bipolar type (principal); B18.2 Chronic viral hepatitis C; E11.9 Type 2 diabetes mellitus without complications; E78.5 Hyperlipidemia, unspecified; F17.200 Nicotine dependence, unspecified, uncomplicated; G47.00 Insomnia, unspecified; I10 Essential (primary) hypertension; J44.9 Chronic obstructive pulmonary disease, unspecified; M19.90 Unspecified osteoarthritis, unspecified site; Z79.899 Other long term (current) drug therapy
CPT/HCPCS: G0480

== ENCOUNTER 2018-08-13 18:35 | Emergency (ER) | payer MEDICARE, MEDICAID ==
[~2018-08-13] VITALS: Ht 167.6 cm; Wt 77.0 kg
[~2018-08-13 18:35] MED LIST changes: -DSS100 PO; -FOLI1 PO; -OMEP20 PO; -THIA100T67 PO
[2018-08-13 19:39] LABS: BASOPHILS % (AUTO) 1.3 % (0.0-2.0); EOSINOPHILS % (AUTO) 3.3 % (1.0-6.0); HEMATOCRIT 33.4 % (41-53); HEMOGLOBIN 11.1 g/dL (13.5-17.5); LYMPHOCYTES # (AUTO) 1.7 K/uL (1.0-4.8); LYMPHOCYTES % (AUTO) 41.6 % (22.0-44.0); MEAN CORPUSCULAR HEMOGLOBIN 33.2 pg (26.0-34.0); MEAN CORPUSCULAR HGB CONC 33.3 G/dL (31.0-37.0); MEAN CORPUSCULAR VOLUME 100 fL (80-100); MONOCYTES # (AUTO) 0.7 K/uL (0.1-1.0); MONOCYTES % (AUTO) 18.2 % (2.0-9.0); NEUTROPHILS # (AUTO) 1.4 K/uL (1.8-7.7); NEUTROPHILS % (AUTO) 35.6 % (40.0-70.0); PLATELET COUNT (AUTO) 145 K/uL (150-450); RED BLOOD CELL COUNT(AUTO) 3.35 MIL/uL (4.50-5.90); RED CELL DISTRIBUTION WIDTH 14.9 % (11.5-14.5)
[2018-08-13 19:52] LABS: CREATININE 1.78 mg/dL (0.60-1.30); POTASSIUM 4.4 mmol/L (3.5-5.1)
[2018-08-13 19:58] LABS: ALBUMIN 2.8 g/dL (3.4-5.0); BILIRUBIN,TOTAL 0.2 mg/dL (0.1-1.0); TOTAL PROTEIN, SERUM 7.4 g/dL (6.4-8.2)
[2018-08-13 20:36] LABS: AMPHET/METH SCREEN,URINE NEGATIVE (NEGATIVE); BARBITURATE SCREEN, URINE NEGATIVE (NEGATIVE); BENZODIAZEPINES SCREEN,URINE POSITIVE (NEGATIVE); CANNABINOID SCREEN,URINE NEGATIVE (NEGATIVE); COCAINE SCREEN,URINE NEGATIVE (NEGATIVE); METHADONE SCREEN, URINE NEGATIVE (NEGATIVE); OPIATE SCREEN,URINE NEGATIVE (NEGATIVE)
[2018-08-13 20:37] LABS: PHENCYCLIDINE SCREEN,URINE NEGATIVE (NEGATIVE)
[2018-08-13] MEDS ORDERED: ChlordiazePOXIDE HCL 25 MG CAPSULE PO ONE (21:15)
[2018-08-13] MEDS ORDERED: MAGNESIUM SULFATE 2 GM, MVI, ADULT NO.1 WITH VIT K 10 ML, THIAMINE HCL 100 MG, FOLIC AC... IV ONE ×5 (21:15)
[2018-08-14 03:05] VITALS: BP 139/91
== END 2018-08-14 03:41 | disposition home or self-care (01) ==
LOC: EMS 18:38
DX: R07.9 Chest pain, unspecified (principal); F10.129 Alcohol abuse with intoxication, unspecified; R47.81 Slurred speech; F32.9 Major depressive disorder, single episode, unspecified; G89.29 Other chronic pain; F17.210 Nicotine dependence, cigarettes, uncomplicated; F14.90 Cocaine use, unspecified, uncomplicated; Z79.899 Other long term (current) drug therapy; Y90.6 Blood alcohol level of 120-199 mg/100 ml
CPT/HCPCS: 36415; 71046; 80053; 80307; 83880; 84484; 85025; 93005; 96365; 99284; G0480; J3411; J3475; J3490 ×2; J7030

== ENCOUNTER 2018-08-29 21:34 | Emergency (ER) | payer MEDICARE, MEDICAID ==
[~2018-08-29] VITALS: Ht 170.2 cm; Wt 74.1 kg
[2018-08-29] MEDS ORDERED: HALO5TAB2 PO (21:49)
[2018-08-29 22:28] LABS: BASOPHILS % (AUTO) 0.9 % (0.0-2.0); EOSINOPHILS % (AUTO) 1.4 % (1.0-6.0); HEMATOCRIT 39.2 % (41-53); HEMOGLOBIN 13.1 g/dL (13.5-17.5); LYMPHOCYTES # (AUTO) 1.6 K/uL (1.0-4.8); LYMPHOCYTES % (AUTO) 33.5 % (22.0-44.0); MEAN CORPUSCULAR HEMOGLOBIN 33.8 pg (26.0-34.0); MEAN CORPUSCULAR HGB CONC 33.4 G/dL (31.0-37.0); MEAN CORPUSCULAR VOLUME 101 fL (80-100); MONOCYTES # (AUTO) 0.9 K/uL (0.1-1.0); MONOCYTES % (AUTO) 18.1 % (2.0-9.0); NEUTROPHILS # (AUTO) 2.2 K/uL (1.8-7.7); NEUTROPHILS % (AUTO) 46.1 % (40.0-70.0); PLATELET COUNT (AUTO) 202 K/uL (150-450); RED BLOOD CELL COUNT(AUTO) 3.87 MIL/uL (4.50-5.90); RED CELL DISTRIBUTION WIDTH 13.7 % (11.5-14.5)
[2018-08-29 23:04] LABS: CALCIUM, TOTAL 9.8 mg/dL (8.8-10.5); CREATININE 2.07 mg/dL (0.60-1.30); POTASSIUM 3.7 mmol/L (3.5-5.1)
[2018-08-29 23:10] LABS: ALBUMIN 3.3 g/dL (3.4-5.0); BILIRUBIN,TOTAL 0.3 mg/dL (0.1-1.0); TOTAL PROTEIN, SERUM 8.2 g/dL (6.4-8.2)
[2018-08-30] MEDS ORDERED: SODIUM CHLORIDE 0.9% 2,000 ML IV ONE (01:00)
[2018-08-30 04:05] LABS: CREATININE 1.42 mg/dL (0.60-1.30); POTASSIUM 3.7 mmol/L (3.5-5.1)
[2018-08-30 06:00] VITALS: BP 112/74
== END 2018-08-30 06:23 | disposition home or self-care (01) ==
LOC: EMS 21:41
DX: R45.851 Suicidal ideations (principal); E86.0 Dehydration; F10.129 Alcohol abuse with intoxication, unspecified; K70.30 Alcoholic cirrhosis of liver without ascites; N28.9 Disorder of kidney and ureter, unspecified; F32.9 Major depressive disorder, single episode, unspecified; F17.210 Nicotine dependence, cigarettes, uncomplicated; G89.29 Other chronic pain; F14.90 Cocaine use, unspecified, uncomplicated; Z79.899 Other long term (current) drug therapy; Y90.7 Blood alcohol level of 200-239 mg/100 ml
CPT/HCPCS: 36415; 80048; 80053; 85025; 96360; 96361; 99285; 99406; G0480; J7030

== ENCOUNTER 2018-08-30 21:33 | Emergency (ER) | payer MEDICARE, MEDICAID ==
[~2018-08-30] VITALS: Ht 170.2 cm; Wt 74.1 kg
[~2018-08-30 21:33] MED LIST changes: +HALO5TAB2 PO
[2018-08-30 21:55] LABS: BASOPHILS % (AUTO) 0.9 % (0.0-2.0); EOSINOPHILS % (AUTO) 1.6 % (1.0-6.0); HEMATOCRIT 36.6 % (41-53); HEMOGLOBIN 12.2 g/dL (13.5-17.5); LYMPHOCYTES # (AUTO) 2.5 K/uL (1.0-4.8); LYMPHOCYTES % (AUTO) 47.5 % (22.0-44.0); MEAN CORPUSCULAR HEMOGLOBIN 33.9 pg (26.0-34.0); MEAN CORPUSCULAR HGB CONC 33.2 G/dL (31.0-37.0); MEAN CORPUSCULAR VOLUME 102 fL (80-100); MONOCYTES # (AUTO) 0.8 K/uL (0.1-1.0); MONOCYTES % (AUTO) 15.8 % (2.0-9.0); NEUTROPHILS # (AUTO) 1.8 K/uL (1.8-7.7); NEUTROPHILS % (AUTO) 34.2 % (40.0-70.0); PLATELET COUNT (AUTO) 191 K/uL (150-450); RED BLOOD CELL COUNT(AUTO) 3.59 MIL/uL (4.50-5.90); RED CELL DISTRIBUTION WIDTH 13.6 % (11.5-14.5)
[2018-08-30 22:04] LABS: CALCIUM, TOTAL 9.1 mg/dL (8.8-10.5); CREATININE 1.61 mg/dL (0.60-1.30); POTASSIUM 4.3 mmol/L (3.5-5.1)
[2018-08-30 22:12] LABS: BILIRUBIN,TOTAL 0.2 mg/dL (0.1-1.0); TOTAL PROTEIN, SERUM 7.6 g/dL (6.4-8.2)
[2018-08-31 04:06] VITALS: BP 110/68
== END 2018-08-31 04:24 | disposition home or self-care (01) ==
LOC: EMS 21:35
DX: S00.81XA Abrasion of other part of head, initial encounter (principal); N18.9 Chronic kidney disease, unspecified; F10.129 Alcohol abuse with intoxication, unspecified; F17.210 Nicotine dependence, cigarettes, uncomplicated; F32.9 Major depressive disorder, single episode, unspecified; G89.29 Other chronic pain; Z79.899 Other long term (current) drug therapy; W19.XXXA Unspecified fall, initial encounter; Y93.89 Activity, other specified; Y92.89 Other specified places as the place of occurrence of the external cause; Y99.8 Other external cause status; Y90.8 Blood alcohol level of 240 mg/100 ml or more
CPT/HCPCS: 36415; 80053; 85025; 99283; 99406; G0480

== ENCOUNTER 2018-09-29 00:33 | Emergency (ER) | payer MEDICARE, MEDICAID ==
[~2018-09-29] VITALS: Ht 170.2 cm; Wt 60.5 kg
[2018-09-29 01:00] LABS: GLUCOSE,POINT OF CARE 132 MG/DL (70-110)
[2018-09-29 04:28] VITALS: BP 136/89
== END 2018-09-29 04:53 | disposition home or self-care (01) ==
LOC: EMS 00:35
DX: S09.90XA Unspecified injury of head, initial encounter (principal); F10.229 Alcohol dependence with intoxication, unspecified; R07.89 Other chest pain; G89.29 Other chronic pain; F11.90 Opioid use, unspecified, uncomplicated; F32.9 Major depressive disorder, single episode, unspecified; F17.210 Nicotine dependence, cigarettes, uncomplicated; Z79.899 Other long term (current) drug therapy; W18.39XA Other fall on same level, initial encounter; Y93.01 Activity, walking, marching and hiking; Y92.89 Other specified places as the place of occurrence of the external cause; Y99.8 Other external cause status
CPT/HCPCS: 70450; 72125; 93005

== ENCOUNTER 2019-01-22 13:46 | Inpatient (IN) | payer MEDICARE, MEDICAID ==
[~2019-01-22] VITALS: Ht 170.2 cm; Wt 66.7 kg
[2019-01-22 15:19] LABS: ANION GAP 12 mmol/L (8-16); CALCIUM, TOTAL 9.2 mg/dL (8.8-10.5); CARBON DIOXIDE 23 mmol/L (22-29); CHLORIDE 105 mmol/L (98-107); CREATININE 0.82 mg/dL (0.60-1.30); GLUCOSE,RANDOM 91 mg/dL (70-110); SODIUM SERUM 140 mmol/L (136-145); UREA NITROGEN, BLOOD 14 mg/dL (7-18)
[2019-01-22 15:20] LABS: GLOMERULAR FILTR. RATE CALC > 60 mL/min (>60)
[2019-01-22 15:25] LABS: ALANINE AMINOTRANSFERASE 35 U/L (12-78); ALBUMIN 2.7 g/dL (3.4-5.0); ALKALINE PHOSPHATASE 70 U/L (46-116); ASPARTATE AMINOTRANSFERASE 53 U/L (15-37); BILIRUBIN,TOTAL 0.3 mg/dL (0.1-1.0); TOTAL PROTEIN, SERUM 7.1 g/dL (6.4-8.2)
[2019-01-22 15:26] LABS: EOSINOPHILS % (AUTO) 1.3 % (1.0-6.0); HEMOGLOBIN 11.8 g/dL (13.5-17.5); LYMPHOCYTES # (AUTO) 1.9 K/uL (1.0-4.8); LYMPHOCYTES % (AUTO) 29.6 % (22.0-44.0); MEAN CORPUSCULAR HGB CONC 33.8 G/dL (31.0-37.0); MEAN CORPUSCULAR VOLUME 101 fL (80-100); MONOCYTES % (AUTO) 15.1 % (2.0-9.0); NEUTROPHILS # (AUTO) 3.4 K/uL (1.8-7.7); PLATELET COUNT (AUTO) 261 K/uL (150-450); RED BLOOD CELL COUNT(AUTO) 3.48 MIL/uL (4.50-5.90); RED CELL DISTRIBUTION WIDTH 15.2 % (11.5-14.5)
[2019-01-22 16:31] LABS: PLATELET MORPHOLOGY COMMENT NORMAL
[2019-01-22 18:43] LABS: AMPHET/METH SCREEN,URINE NEGATIVE (NEGATIVE); BARBITURATE SCREEN, URINE NEGATIVE (NEGATIVE); BENZODIAZEPINES SCREEN,URINE NEGATIVE (NEGATIVE); CANNABINOID SCREEN,URINE NEGATIVE (NEGATIVE); COCAINE SCREEN,URINE NEGATIVE (NEGATIVE); METHADONE SCREEN, URINE NEGATIVE (NEGATIVE); OPIATE SCREEN,URINE NEGATIVE (NEGATIVE)
[2019-01-22 18:44] LABS: PHENCYCLIDINE SCREEN,URINE NEGATIVE (NEGATIVE)
[2019-01-22] MEDS ORDERED: HALOPERIDOL 5 MG TABLET PO PRN (18:45)
[2019-01-22] MEDS ORDERED: LORazepam 2 MG TABLET PO PRN ×2 (18:45→19:45)
[2019-01-22 19:55] VITALS: BP 151/93
[2019-01-22 21:00] VITALS: BP 132/89
[2019-01-22 21:55] VITALS: BP 151/93
[2019-01-22 22:00] VITALS: BP 135/89
[2019-01-22] MEDS ORDERED: DEXTROSE 50%-WATER 25 GM/50 ML SYG IVP PRN (22:15)
[2019-01-22] MEDS ORDERED: CloNIDine HCL 0.1 MG TABLET PO PRN (22:15)
[2019-01-22] MEDS ORDERED: GLUCAGON,HUMAN RECOMBINANT 1 MG VIAL IM PRN (22:15)
[2019-01-22] MEDS ORDERED: ACETAMINOPHEN 325 MG TABLET PO PRN (22:15)
[2019-01-22] MEDS ORDERED: INSULIN LISPRO 100 UNITS/ML SQ PRN (22:15)
[2019-01-22 23:04] VITALS: BP 137/91
[2019-01-23 00:01] VITALS: BP 147/97
[2019-01-23 04:00] VITALS: BP 132/84
[2019-01-23 06:35] LABS: GLUCOMETER DEV NAME(LOC) 3EX.; GLUCOSE,POINT OF CARE 126 MG/DL (70-110)
[2019-01-23] MEDS ORDERED: LORazepam 2 MG TABLET PO PRN (07:00)
[2019-01-23 08:00] VITALS: BP 144/93
[2019-01-23] MEDS: LORazepam 2 MG TABLET PO SCH ×4 (08:30→20:53)
[2019-01-23] MEDS: LISINOPRIL 10 MG TABLET PO SCH (08:30)
[2019-01-23 12:00] VITALS: BP 127/73
[2019-01-23 16:00] VITALS: BP 119/81
[2019-01-23 20:30] VITALS: BP 114/68
[2019-01-23] MEDS: RisperiDONE 1 MG TABLET PO SCH (20:53)
[2019-01-24 04:03] VITALS: BP 113/91
[2019-01-24 05:35] LABS: GLUCOMETER DEV NAME(LOC) 3EX.; GLUCOSE,POINT OF CARE 156 MG/DL (70-110)
[2019-01-24] MEDS: INSULIN LISPRO 100 UNITS/ML SQ PRN ×2 (07:05→17:28)
[2019-01-24 08:00] VITALS: BP 117/82
[2019-01-24] MEDS: LORazepam 2 MG TABLET PO SCH ×4 (08:28→21:24)
[2019-01-24] MEDS: LISINOPRIL 10 MG TABLET PO SCH (08:28)
[2019-01-24] MEDS: FLUoxetine HCL 20 MG CAPSULE PO SCH (08:29)
[2019-01-24 17:00] VITALS: BP 120/90
[2019-01-24 17:22] LABS: GLUCOMETER DEV NAME(LOC) 3EX.; GLUCOSE,POINT OF CARE 166 MG/DL (70-110)
[2019-01-24] MEDS: RisperiDONE 1 MG TABLET PO SCH (21:22)
[2019-01-25 01:15] VITALS: BP 110/66
[2019-01-25 05:43] LABS: GLUCOMETER DEV NAME(LOC) 3EX.; GLUCOSE,POINT OF CARE 181 MG/DL (70-110)
[2019-01-25] MEDS ORDERED: LORazepam 1 MG TABLET PO PRN (07:00)
[2019-01-25] MEDS: INSULIN LISPRO 100 UNITS/ML SQ PRN (07:16)
[2019-01-25] MEDS: FLUoxetine HCL 20 MG CAPSULE PO SCH (08:58)
[2019-01-25] MEDS: LISINOPRIL 10 MG TABLET PO SCH (08:58)
[2019-01-25] MEDS ORDERED: LORazepam 1 MG TABLET PO SCH (09:00)
[2019-01-25 09:02] VITALS: BP 151/98
[2019-01-25 09:08] VITALS: BP 151/98
[2019-01-25 10:14] LABS: HEMOGLOBIN A1C 6.5 % (4.5-6.2)
[2019-01-25 10:26] LABS: ALANINE AMINOTRANSFERASE 29 U/L (12-78); ALBUMIN 2.6 g/dL (3.4-5.0); ALKALINE PHOSPHATASE 81 U/L (46-116); ANION GAP 12 mmol/L (8-16); ASPARTATE AMINOTRANSFERASE 32 U/L (15-37); BILIRUBIN,TOTAL 0.2 mg/dL (0.1-1.0); CALCIUM, TOTAL 8.6 mg/dL (8.8-10.5); CARBON DIOXIDE 21 mmol/L (22-29); CHLORIDE 104 mmol/L (98-107); CREATININE 0.97 mg/dL (0.60-1.30); GLOMERULAR FILTR. RATE CALC > 60 mL/min (>60); GLUCOSE,RANDOM 356 mg/dL (70-110); POTASSIUM 4.1 mmol/L (3.5-5.1); SODIUM SERUM 137 mmol/L (136-145); TOTAL PROTEIN, SERUM 6.4 g/dL (6.4-8.2); UREA NITROGEN, BLOOD 12 mg/dL (7-18)
[2019-01-25 10:47] LABS: CHOL/HDL RATIO 2.5 (4.2-7.3); CHOLESTEROL 155 mg/dL (131-200); CREATINE KINASE, TOTAL ONLY 37 U/L (39-308); HDL CHOLESTEROL 63 mg/dL (40-60); LDL CHOL (CALC.) 71 mg/dL (0-130); THYROID STIMULATING HORMONE 1.87 uIU/mL (0.36-3.74); TRIGLYCERIDES 107 mg/dL (15-150)
[2019-01-25 11:30] VITALS: BP 128/88
[2019-01-25] MEDS: LORazepam 1 MG TABLET PO SCH ×2 (12:12→17:12)
[2019-01-25 16:29] VITALS: BP 135/78
[2019-01-25 16:30] VITALS: BP 135/78
[2019-01-25 17:22] LABS: GLUCOMETER DEV NAME(LOC) 3E.I; GLUCOSE,POINT OF CARE 136 MG/DL (70-110)
[2019-01-25] MEDS ORDERED: INSULIN LISPRO 100 UNITS/ML SQ PRN (19:00)
[2019-01-25] MEDS ORDERED: GLUCAGON,HUMAN RECOMBINANT 1 MG VIAL IM PRN (19:00)
[2019-01-25] MEDS: RisperiDONE 1 MG TABLET PO SCH (20:43)
[2019-01-26] VITALS (8 sets, daily range): BP systolic 112–149; BP diastolic 73–107
[2019-01-26] MEDS: ZOLPIDEM TARTRATE 10 MG TABLET PO PRN (00:27)
[2019-01-26 06:13] LABS: GLUCOMETER DEV NAME(LOC) 3EX.; GLUCOSE,POINT OF CARE 136 MG/DL (70-110)
[2019-01-26] MEDS ORDERED: LORazepam 1 MG TABLET PO PRN (07:00)
[2019-01-26] MEDS: FLUoxetine HCL 20 MG CAPSULE PO SCH (09:05)
[2019-01-26] MEDS: LORazepam 1 MG TABLET PO SCH (09:05)
[2019-01-26] MEDS: MULTIVITAMINS WITH MINERALS, THERAPEUTIC TABLET PO SCH (09:05)
[2019-01-26] MEDS: MAGNESIUM OXIDE 400 MG TABLET PO SCH (09:06)
[2019-01-26] MEDS: LISINOPRIL 10 MG TABLET PO SCH (09:07)
[2019-01-26 17:09] LABS: GLUCOMETER DEV NAME(LOC) 3E.I; GLUCOSE,POINT OF CARE 130 MG/DL (70-110)
[2019-01-26] MEDS: RisperiDONE 1 MG TABLET PO SCH (20:38)
[2019-01-27 04:34] VITALS: BP 101/66
[2019-01-27 05:54] LABS: GLUCOMETER DEV NAME(LOC) 3EX.; GLUCOSE,POINT OF CARE 113 MG/DL (70-110)
[2019-01-27 06:37] LABS: APPEARANCE,URINE CLOUDY (CLEAR); BILIRUBIN,URINE NEGATIVE (NEGATIVE); GLUCOSE, URINE (UA) NEGATIVE (NEGATIVE); KETONES,URINE NEGATIVE (NEGATIVE); LEUKOCYTE ESTERASE ,URINE SMALL (NEGATIVE); NITRATE,URINE NEGATIVE (NEGATIVE); OCCULT BLOOD,URINE NEGATIVE (NEGATIVE); PH,URINE 6.5 (5.0-8.0); PROTEIN,URINE NEGATIVE (NEGATIVE)
[2019-01-27 06:51] LABS: BACTERIA,URINE Many /HPF (None Seen); RBC,URINE None Seen /HPF (0-2)
[2019-01-27] MEDS: FLUoxetine HCL 20 MG CAPSULE PO SCH (08:37)
[2019-01-27] MEDS: LISINOPRIL 10 MG TABLET PO SCH (08:37)
[2019-01-27] MEDS: MULTIVITAMINS WITH MINERALS, THERAPEUTIC TABLET PO SCH (08:37)
[2019-01-27] MEDS: MAGNESIUM OXIDE 400 MG TABLET PO SCH (08:37)
[2019-01-27 17:34] LABS: GLUCOMETER DEV NAME(LOC) 3E.I; GLUCOSE,POINT OF CARE 76 MG/DL (70-110)
[2019-01-27 18:09] VITALS: BP 109/77
[2019-01-27] MEDS: RisperiDONE 1 MG TABLET PO SCH (20:43)
[2019-01-28 05:43] LABS: GLUCOMETER DEV NAME(LOC) 3EX.; GLUCOSE,POINT OF CARE 111 MG/DL (70-110)
[2019-01-28 07:39] LABS: ALANINE AMINOTRANSFERASE 35 U/L (12-78); ALBUMIN 2.7 g/dL (3.4-5.0); ALKALINE PHOSPHATASE 58 U/L (46-116); ANION GAP 8 mmol/L (8-16); ASPARTATE AMINOTRANSFERASE 36 U/L (15-37); BILIRUBIN,TOTAL 0.5 mg/dL (0.1-1.0); CALCIUM, TOTAL 8.9 mg/dL (8.8-10.5); CARBON DIOXIDE 24 mmol/L (22-29); CHLORIDE 104 mmol/L (98-107); CREATININE 0.89 mg/dL (0.60-1.30); GLUCOSE,RANDOM 126 mg/dL (70-110); POTASSIUM 4.3 mmol/L (3.5-5.1); SODIUM SERUM 136 mmol/L (136-145); TOTAL PROTEIN, SERUM 6.6 g/dL (6.4-8.2); UREA NITROGEN, BLOOD 13 mg/dL (7-18)
[2019-01-28 07:41] LABS: GLOMERULAR FILTR. RATE CALC > 60 mL/min (>60)
[2019-01-28 08:00] VITALS: BP 96/68
[2019-01-28] MEDS: MAGNESIUM OXIDE 400 MG TABLET PO SCH (08:14)
[2019-01-28] MEDS: NITROFURANTOIN/NITROFURAN MAC 100 MG CAPSULE [MACROBID] PO SCH ×2 (08:14→16:47)
[2019-01-28] MEDS: FLUoxetine HCL 20 MG CAPSULE PO SCH (08:15)
[2019-01-28] MEDS: LISINOPRIL 10 MG TABLET PO SCH (08:15)
[2019-01-28] MEDS: MULTIVITAMINS WITH MINERALS, THERAPEUTIC TABLET PO SCH (08:15)
[2019-01-28] MEDS: IBUPROFEN 600 MG TABLET PO PRN (12:46)
[2019-01-28 16:00] VITALS: BP 110/80
[2019-01-28 17:21] LABS: GLUCOMETER DEV NAME(LOC) 3E.I; GLUCOSE,POINT OF CARE 153 MG/DL (70-110)
[2019-01-28] MEDS: INSULIN LISPRO 100 UNITS/ML SQ PRN (17:37)
[2019-01-28 19:28] VITALS: BP 110/80
[2019-01-28] MEDS: RisperiDONE 1 MG TABLET PO SCH (20:37)
[2019-01-29 02:58] VITALS: BP 98/76
[2019-01-29 05:27] LABS: GLUCOMETER DEV NAME(LOC) 3EX.; GLUCOSE,POINT OF CARE 171 MG/DL (70-110)
[2019-01-29] MEDS: INSULIN LISPRO 100 UNITS/ML SQ PRN ×2 (06:50→16:52)
[2019-01-29] MEDS: MULTIVITAMINS WITH MINERALS, THERAPEUTIC TABLET PO SCH (08:40)
[2019-01-29] MEDS: FLUoxetine HCL 20 MG CAPSULE PO SCH (08:40)
[2019-01-29] MEDS: NITROFURANTOIN/NITROFURAN MAC 100 MG CAPSULE [MACROBID] PO SCH (08:40)
[2019-01-29] MEDS: LISINOPRIL 10 MG TABLET PO SCH (08:40)
[2019-01-29] MEDS: MAGNESIUM OXIDE 400 MG TABLET PO SCH ×2 (08:40→16:21)
[2019-01-29 09:33] VITALS: BP 121/81
[2019-01-29] MEDS: SULFAMETHOX/TRIMETH DS 800-160 MG/TABLET PO SCH (16:22)
[2019-01-29 16:31] VITALS: BP 122/83
[2019-01-29 16:46] LABS: GLUCOMETER DEV NAME(LOC) 3E.I; GLUCOSE,POINT OF CARE 183 MG/DL (70-110)
[2019-01-29] MEDS: RisperiDONE 1 MG TABLET PO SCH (20:07)
[2019-01-29 20:12] VITALS: BP 129/78
[2019-01-29] MEDS: IBUPROFEN 600 MG TABLET PO PRN (20:12)
[2019-01-30 00:48] VITALS: BP 119/84
[2019-01-30] MEDS: ZOLPIDEM TARTRATE 10 MG TABLET PO PRN ×2 (02:26→20:52)
[2019-01-30 05:46] LABS: GLUCOMETER DEV NAME(LOC) 3EX.; GLUCOSE,POINT OF CARE 105 MG/DL (70-110)
[2019-01-30] MEDS: FLUoxetine HCL 20 MG CAPSULE PO SCH (07:59)
[2019-01-30] MEDS: MULTIVITAMINS WITH MINERALS, THERAPEUTIC TABLET PO SCH (07:59)
[2019-01-30] MEDS: SULFAMETHOX/TRIMETH DS 800-160 MG/TABLET PO SCH (07:59)
[2019-01-30] MEDS: MAGNESIUM OXIDE 400 MG TABLET PO SCH ×2 (08:00→17:16)
[2019-01-30] MEDS: LISINOPRIL 10 MG TABLET PO SCH (08:00)
[2019-01-30 09:40] VITALS: BP 111/71
[2019-01-30] MEDS ORDERED: PredniSONE 10 MG TABLET PO SCH (10:15)
[2019-01-30] MEDS ORDERED: PredniSONE 10 MG TABLET PO ONE (10:30)
[2019-01-30 16:35] VITALS: BP 129/86
[2019-01-30] MEDS: CIPROFLOXACIN HCL 500 MG TABLET PO SCH (17:16)
[2019-01-30 17:27] LABS: GLUCOMETER DEV NAME(LOC) 3E.I; GLUCOSE,POINT OF CARE 165 MG/DL (70-110)
[2019-01-30] MEDS: INSULIN LISPRO 100 UNITS/ML SQ PRN (17:38)
[2019-01-30] MEDS: RisperiDONE 1 MG TABLET PO SCH (20:29)
[2019-01-31 05:38] VITALS: BP 100/59
[2019-01-31 05:41] LABS: GLUCOMETER DEV NAME(LOC) 3EX.; GLUCOSE,POINT OF CARE 106 MG/DL (70-110)
[2019-01-31] MEDS: MULTIVITAMINS WITH MINERALS, THERAPEUTIC TABLET PO SCH (09:00)
[2019-01-31] MEDS: MAGNESIUM OXIDE 400 MG TABLET PO SCH (09:00)
[2019-01-31] MEDS: LISINOPRIL 10 MG TABLET PO SCH (09:00)
[2019-01-31] MEDS: FLUoxetine HCL 20 MG CAPSULE PO SCH (09:00)
[2019-01-31] MEDS: CIPROFLOXACIN HCL 500 MG TABLET PO SCH (09:00)
[2019-01-31] MEDS ORDERED: CIPR-278 PO (10:01)
== END 2019-01-31 12:10 | disposition home or self-care (01) | DRG 885 ==
LOC: EMS 13:48 → 3EX 19:30
PROVIDERS: ADMIT Psychiatry & Neurology Psychiatry; ATTEND Psychiatry & Neurology Psychiatry
DX: F25.1 Schizoaffective disorder, depressive type (principal); N17.9 Acute kidney failure, unspecified; B19.20 Unspecified viral hepatitis C without hepatic coma; R45.851 Suicidal ideations; N39.0 Urinary tract infection, site not specified; I12.9 Hypertensive chronic kidney disease with stage 1 through stage 4 chronic kidney disease, or unspecified chronic kidney disease; E11.22 Type 2 diabetes mellitus with diabetic chronic kidney disease; D64.9 Anemia, unspecified; F10.20 Alcohol dependence, uncomplicated; J44.9 Chronic obstructive pulmonary disease, unspecified; L29.9 Pruritus, unspecified; F17.210 Nicotine dependence, cigarettes, uncomplicated; F41.9 Anxiety disorder, unspecified; R45.850 Homicidal ideations; Y90.6 Blood alcohol level of 120-199 mg/100 ml; G89.29 Other chronic pain; E83.42 Hypomagnesemia; N18.2 Chronic kidney disease, stage 2 (mild); Z79.899 Other long term (current) drug therapy; Z91.5 Personal history of self-harm; Z59.0 Homelessness
CPT/HCPCS: 83036; 83735; 84443; 87086; G0378; G0480

== ENCOUNTER 2019-04-01 18:36 | Emergency (ER) | payer MEDICARE, MEDICAID ==
[~2019-04-01] VITALS: Ht 170.2 cm; Wt 71.4 kg
[~2019-04-01 18:36] MED LIST changes: +CIPR-278 PO; -HALO5TAB2 PO
[2019-04-02 05:30] VITALS: BP 124/88
== END 2019-04-02 06:06 | disposition home or self-care (01) ==
LOC: EMS 18:36
DX: F10.229 Alcohol dependence with intoxication, unspecified (principal); F32.9 Major depressive disorder, single episode, unspecified; F17.210 Nicotine dependence, cigarettes, uncomplicated; F14.90 Cocaine use, unspecified, uncomplicated; Y90.9 Presence of alcohol in blood, level not specified; Z79.899 Other long term (current) drug therapy

== ENCOUNTER 2019-04-03 14:19 | Emergency (ER) | payer MEDICARE, MEDICAID ==
[~2019-04-03] VITALS: Ht 170.2 cm; Wt 67.6 kg
[2019-04-03 15:31] VITALS: BP 121/70
== END 2019-04-03 15:57 | disposition home or self-care (01) ==
LOC: EMS 14:20
DX: F10.229 Alcohol dependence with intoxication, unspecified (principal); G89.29 Other chronic pain; F32.9 Major depressive disorder, single episode, unspecified; F17.210 Nicotine dependence, cigarettes, uncomplicated; Z98.890 Other specified postprocedural states; Z79.899 Other long term (current) drug therapy

== ENCOUNTER 2019-04-25 13:18 | Inpatient (IN) | payer MEDICARE, MEDICAID ==
[~2019-04-25] VITALS: Ht 170.2 cm; Wt 70.1 kg
[2019-04-25 14:37] LABS: EOSINOPHILS % (AUTO) 1.5 % (1.0-6.0); HEMATOCRIT 38.1 % (41-53); HEMOGLOBIN 12.7 g/dL (13.5-17.5); LYMPHOCYTES # (AUTO) 1.4 K/uL (1.0-4.8); LYMPHOCYTES % (AUTO) 28.3 % (22.0-44.0); MEAN CORPUSCULAR HEMOGLOBIN 33.3 pg (26.0-34.0); MEAN CORPUSCULAR HGB CONC 33.3 G/dL (31.0-37.0); MEAN CORPUSCULAR VOLUME 100 fL (80-100); MONOCYTES # (AUTO) 0.7 K/uL (0.1-1.0); MONOCYTES % (AUTO) 13.1 % (2.0-9.0); NEUTROPHILS # (AUTO) 2.8 K/uL (1.8-7.7); NEUTROPHILS % (AUTO) 56.1 % (40.0-70.0); PLATELET COUNT (AUTO) 175 K/uL (150-450); RED BLOOD CELL COUNT(AUTO) 3.82 MIL/uL (4.50-5.90); RED CELL DISTRIBUTION WIDTH 13.3 % (11.5-14.5)
[2019-04-25] MEDS ORDERED: KETOROLAC TROMETHAMINE 30 MG/ML VIAL IVP ONE (14:45)
[2019-04-25] MEDS ORDERED: SODIUM CHLORIDE 0.9% 2,000 ML IV ONE (14:45)
[2019-04-25 14:52] LABS: ANION GAP 11 mmol/L (8-16); CALCIUM, TOTAL 9.1 mg/dL (8.8-10.5); CARBON DIOXIDE 23 mmol/L (22-29); CHLORIDE 105 mmol/L (98-107); CREATININE 1.13 mg/dL (0.60-1.30); GLUCOSE,RANDOM 91 mg/dL (70-110); POTASSIUM 3.6 mmol/L (3.5-5.1); SODIUM SERUM 139 mmol/L (136-145); UREA NITROGEN, BLOOD 16 mg/dL (7-18)
[2019-04-25 14:59] LABS: ALANINE AMINOTRANSFERASE 28 U/L (12-78); ALBUMIN 2.9 g/dL (3.4-5.0); ALKALINE PHOSPHATASE 54 U/L (46-116); ASPARTATE AMINOTRANSFERASE 30 U/L (15-37); BILIRUBIN,TOTAL 0.3 mg/dL (0.1-1.0); TOTAL PROTEIN, SERUM 7.2 g/dL (6.4-8.2)
[2019-04-25 15:01] LABS: GLOMERULAR FILTR. RATE CALC > 60 mL/min (>60)
[2019-04-25] MEDS ORDERED: LORazepam 2 MG TABLET PO PRN (17:00)
[2019-04-25] MEDS ORDERED: ZOLPIDEM TARTRATE 10 MG TABLET PO PRN (17:00)
[2019-04-25 19:43] VITALS: BP 132/99
[2019-04-25 19:47] VITALS: BP 132/98
[2019-04-25] MEDS ORDERED: CloNIDine HCL 0.1 MG TABLET PO PRN (22:00)
[2019-04-25] MEDS ORDERED: DOCUSATE SODIUM 100 MG CAPSULE PO PRN (22:00)
[2019-04-25] MEDS ORDERED: IBUPROFEN 600 MG TABLET PO PRN (22:00)
[2019-04-25] MEDS ORDERED: ACETAMINOPHEN 325 MG TABLET PO PRN (22:00)
[2019-04-25] MEDS ORDERED: PETROLATUM,WHITE 28 GM JELLY TP PRN (22:00)
[2019-04-25] MEDS ORDERED: MAGNESIUM HYDROXIDE SUSPENSION 30 ML UDCUP PO PRN (22:00)
[2019-04-25] MEDS ORDERED: LOPERAMIDE HCL 2 MG CAPSULE PO PRN (22:00)
[2019-04-25] MEDS ORDERED: MAG HYDROX/AL HYDROX/SIMETH ES 30 ML SUSPENSION UDCUP PO PRN (22:00)
[2019-04-25] MEDS ORDERED: BACITRACIN 28.4 GM OINTMENT TP PRN (22:00)
[2019-04-25] MEDS ORDERED: BENZOCAINE/MENTHOL LOZENGE MM PRN (22:00)
[2019-04-25] MEDS ORDERED: OMEPRAZOLE 20 MG CAPSULE PO PRN (22:00)
[2019-04-25] MEDS ORDERED: ALBUTEROL SULFATE HFA 90 MCG/PUFF 8 GM INHALER IH PRN (22:00)
[2019-04-25] MEDS ORDERED: ONDANSETRON HCL 4 MG TABLET PO PRN (22:00)
[2019-04-26 08:03] LABS: FREE T4 (FREE THYROXINE) 0.98 ng/dL (0.76-1.46); THYROID STIMULATING HORMONE 1.55 uIU/mL (0.36-3.74)
[2019-04-26 09:37] VITALS: BP 159/114
[2019-04-26] MEDS: LISINOPRIL 10 MG TABLET PO SCH (09:38)
[2019-04-26 13:04] VITALS: BP 106/73
[2019-04-26] MEDS: RisperiDONE 1 MG TABLET PO SCH (16:19)
[2019-04-26 20:23] VITALS: BP 129/76
[2019-04-27] MEDS: LISINOPRIL 10 MG TABLET PO SCH (09:05)
[2019-04-27] MEDS: RisperiDONE 1 MG TABLET PO SCH ×2 (09:05→16:22)
[2019-04-27] MEDS ORDERED: DENTURE ADHESIVE 68 GM CREAM DT PRN (09:45)
[2019-04-27 10:07] VITALS: BP 124/89
[2019-04-27 19:23] VITALS: BP 130/70
[2019-04-28] MEDS: RisperiDONE 1 MG TABLET PO SCH ×2 (08:50→16:37)
[2019-04-28] MEDS: LISINOPRIL 10 MG TABLET PO SCH (08:50)
[2019-04-28 11:35] VITALS: BP 144/103
[2019-04-28 18:21] VITALS: BP 123/93
[2019-04-28] MEDS: TraZODone HCL 50 MG TABLET PO SCH (21:30)
[2019-04-29 08:30] VITALS: BP 132/80
[2019-04-29] MEDS: RisperiDONE 1 MG TABLET PO SCH ×2 (08:34→16:02)
[2019-04-29] MEDS: LISINOPRIL 10 MG TABLET PO SCH (08:34)
[2019-04-29 16:04] VITALS: BP 143/82
[2019-04-29 17:04] VITALS: BP 152/97
[2019-04-29] MEDS: TraZODone HCL 50 MG TABLET PO SCH (20:24)
[2019-04-30] MEDS: RisperiDONE 1 MG TABLET PO SCH (08:28)
[2019-04-30] MEDS: LISINOPRIL 10 MG TABLET PO SCH (08:28)
[2019-04-30 08:45] VITALS: BP 128/96
[2019-04-30] MEDS ORDERED: TRAZ-184 PO (09:52)
== END 2019-04-30 11:30 | disposition home or self-care (01) | DRG 885 ==
LOC: EMS 13:21 → 3EI 18:35
PROVIDERS: ADMIT Psychiatry & Neurology Psychiatry; ATTEND Psychiatry & Neurology Psychiatry
DX: F25.9 Schizoaffective disorder, unspecified (principal); R45.851 Suicidal ideations; G89.29 Other chronic pain; F14.90 Cocaine use, unspecified, uncomplicated; F17.210 Nicotine dependence, cigarettes, uncomplicated; K75.9 Inflammatory liver disease, unspecified; Y90.9 Presence of alcohol in blood, level not specified; I95.9 Hypotension, unspecified; F32.9 Major depressive disorder, single episode, unspecified; F10.129 Alcohol abuse with intoxication, unspecified; E78.00 Pure hypercholesterolemia, unspecified; G47.00 Insomnia, unspecified; K59.00 Constipation, unspecified; F19.10 Other psychoactive substance abuse, uncomplicated; F41.9 Anxiety disorder, unspecified
CPT/HCPCS: 83036; 84439; 84443; 93005; 96374; G0480; J1885; J7030

== ENCOUNTER 2019-05-07 05:11 | Emergency (ER) | payer MEDICARE, MEDICAID ==
[~2019-05-07] VITALS: Ht 172.7 cm; Wt 72.7 kg
[~2019-05-07 05:11] MED LIST changes: -CIPR-278 PO; -FLUO-191 PO; +TRAZ-184 PO
[2019-05-07 07:11] VITALS: BP 116/58
== END 2019-05-07 09:01 | disposition home or self-care (01) ==
LOC: EMS 05:11
DX: F10.229 Alcohol dependence with intoxication, unspecified (principal); G89.29 Other chronic pain; F32.9 Major depressive disorder, single episode, unspecified; F17.210 Nicotine dependence, cigarettes, uncomplicated; F11.90 Opioid use, unspecified, uncomplicated; Z79.899 Other long term (current) drug therapy; Z98.890 Other specified postprocedural states

== ENCOUNTER 2019-05-07 18:42 | Emergency (ER) | payer MEDICARE, MEDICAID ==
[~2019-05-07] VITALS: Ht 170.2 cm; Wt 63.6 kg
[2019-05-07 19:06] VITALS: BP 122/86
[2019-05-07 19:40] LABS: BASOPHILS % (AUTO) 0.7 % (0.0-2.0); EOSINOPHILS % (AUTO) 1.3 % (1.0-6.0); HEMOGLOBIN 11.7 g/dL (13.5-17.5); LYMPHOCYTES # (AUTO) 1.4 K/uL (1.0-4.8); LYMPHOCYTES % (AUTO) 27.2 % (22.0-44.0); MEAN CORPUSCULAR HEMOGLOBIN 33.4 pg (26.0-34.0); MEAN CORPUSCULAR HGB CONC 33.4 G/dL (31.0-37.0); MEAN CORPUSCULAR VOLUME 100 fL (80-100); MONOCYTES # (AUTO) 0.6 K/uL (0.1-1.0); MONOCYTES % (AUTO) 12.1 % (2.0-9.0); NEUTROPHILS % (AUTO) 58.7 % (40.0-70.0); PLATELET COUNT (AUTO) 177 K/uL (150-450); RED BLOOD CELL COUNT(AUTO) 3.49 MIL/uL (4.50-5.90); RED CELL DISTRIBUTION WIDTH 13.7 % (11.5-14.5)
[2019-05-07 19:53] LABS: ANION GAP 9 mmol/L (8-16); CALCIUM, TOTAL 9.1 mg/dL (8.8-10.5); CARBON DIOXIDE 23 mmol/L (22-29); CHLORIDE 111 mmol/L (98-107); CREATININE 0.76 mg/dL (0.60-1.30); GLUCOSE,RANDOM 121 mg/dL (70-110); POTASSIUM 4.4 mmol/L (3.5-5.1); SODIUM SERUM 143 mmol/L (136-145); UREA NITROGEN, BLOOD 12 mg/dL (7-18)
[2019-05-07 19:55] LABS: GLOMERULAR FILTR. RATE CALC > 60 mL/min (>60)
[2019-05-07 19:59] LABS: ALANINE AMINOTRANSFERASE 24 U/L (12-78); ALBUMIN 3.1 g/dL (3.4-5.0); ALKALINE PHOSPHATASE 73 U/L (46-116); ASPARTATE AMINOTRANSFERASE 36 U/L (15-37); BILIRUBIN,TOTAL 0.3 mg/dL (0.1-1.0); LIPASE 148 U/L (73-393); TOTAL PROTEIN, SERUM 7.2 g/dL (6.4-8.2)
== END 2019-05-07 22:50 | disposition left against medical advice (07) ==
LOC: EMS 18:44
DX: R07.89 Other chest pain (principal); F10.229 Alcohol dependence with intoxication, unspecified; G89.29 Other chronic pain; F32.9 Major depressive disorder, single episode, unspecified; F17.210 Nicotine dependence, cigarettes, uncomplicated; F11.90 Opioid use, unspecified, uncomplicated; Z79.899 Other long term (current) drug therapy; Z98.890 Other specified postprocedural states; Y90.6 Blood alcohol level of 120-199 mg/100 ml
CPT/HCPCS: 36415; 71045; 80053; 82962; 83690; 84484; 85025; 99283; G0480

== ENCOUNTER 2019-09-06 12:05 | Emergency (ER) | payer MEDICARE, MEDICAID ==
[~2019-09-06] VITALS: Ht 172.7 cm; Wt 70.9 kg
[~2019-09-06 12:05] MED LIST changes: -RISP1 PO; +RISP1TAB27 PO
[2019-09-06] MEDS ORDERED: ACETAMINOPHEN 500 MG TABLET PO ONE (14:00)
[2019-09-06 14:53] LABS: BASOPHILS % (AUTO) 0.7 % (0.0-2.0); EOSINOPHILS % (AUTO) 0.5 % (1.0-6.0); LYMPHOCYTES # (AUTO) 1.3 K/uL (1.0-4.8); LYMPHOCYTES % (AUTO) 19.3 % (22.0-44.0); MEAN CORPUSCULAR HGB CONC 32.4 G/dL (31.0-37.0); MEAN CORPUSCULAR VOLUME 96 fL (80-100); MONOCYTES # (AUTO) 0.8 K/uL (0.1-1.0); MONOCYTES % (AUTO) 11.2 % (2.0-9.0); NEUTROPHILS # (AUTO) 4.7 K/uL (1.8-7.7); NEUTROPHILS % (AUTO) 68.3 % (40.0-70.0); PLATELET COUNT (AUTO) 177 K/uL (150-450); RED BLOOD CELL COUNT(AUTO) 4.18 MIL/uL (4.50-5.90); RED CELL DISTRIBUTION WIDTH 13.9 % (11.5-14.5)
[2019-09-06 15:20] LABS: ANION GAP 3 mmol/L (8-16); CALCIUM, TOTAL 8.7 mg/dL (8.8-10.5); CARBON DIOXIDE 27 mmol/L (22-29); CHLORIDE 103 mmol/L (98-107); CREATININE 0.88 mg/dL (0.60-1.30); GLUCOSE,RANDOM 115 mg/dL (70-110); POTASSIUM 3.7 mmol/L (3.5-5.1); SODIUM SERUM 133 mmol/L (136-145); UREA NITROGEN, BLOOD 10 mg/dL (7-18)
[2019-09-06 15:22] LABS: GLOMERULAR FILTR. RATE CALC > 60 mL/min (>60)
[2019-09-06 15:26] LABS: ALANINE AMINOTRANSFERASE 22 U/L (12-78); ALKALINE PHOSPHATASE 70 U/L (46-116); ASPARTATE AMINOTRANSFERASE 19 U/L (15-37); BILIRUBIN,TOTAL 0.5 mg/dL (0.1-1.0); TOTAL PROTEIN, SERUM 7.4 g/dL (6.4-8.2)
[2019-09-06 19:06] VITALS: BP 136/82
== END 2019-09-06 19:59 | disposition home or self-care (01) ==
LOC: EMS 12:06
DX: F32.9 Major depressive disorder, single episode, unspecified (principal); R05 Cough; R50.9 Fever, unspecified; F17.210 Nicotine dependence, cigarettes, uncomplicated; Z20.828 Contact with and (suspected) exposure to other viral communicable diseases; Z79.899 Other long term (current) drug therapy
CPT/HCPCS: 36415; 71045; 80053; 85025; 99285; G0480; U0003

== ENCOUNTER 2019-09-07 17:45 | Emergency (ER) | payer MEDICARE, MEDICAID ==
[~2019-09-07] VITALS: Ht 172.7 cm; Wt 70.9 kg
[2019-09-07] MEDS ORDERED: 0.9% SODIUM CHLORIDE 10 ML SYRINGE IVP PRN (18:15)
[2019-09-07] MEDS ORDERED: ACETAMINOPHEN 325 MG TABLET PO ONE (18:15)
[2019-09-07 18:41] LABS: BASOPHILS % (AUTO) 0.9 % (0.0-2.0); EOSINOPHILS % (AUTO) 0.4 % (1.0-6.0); HEMOGLOBIN 13.1 g/dL (13.5-17.5); LYMPHOCYTES # (AUTO) 1.5 K/uL (1.0-4.8); LYMPHOCYTES % (AUTO) 18.5 % (22.0-44.0); MEAN CORPUSCULAR HEMOGLOBIN 31.5 pg (26.0-34.0); MEAN CORPUSCULAR HGB CONC 33.5 G/dL (31.0-37.0); MEAN CORPUSCULAR VOLUME 94 fL (80-100); MONOCYTES % (AUTO) 12.7 % (2.0-9.0); NEUTROPHILS # (AUTO) 5.4 K/uL (1.8-7.7); NEUTROPHILS % (AUTO) 67.5 % (40.0-70.0); PLATELET COUNT (AUTO) 182 K/uL (150-450); RED BLOOD CELL COUNT(AUTO) 4.14 MIL/uL (4.50-5.90); RED CELL DISTRIBUTION WIDTH 13.6 % (11.5-14.5)
[2019-09-07 18:53] LABS: ANION GAP 11 mmol/L (8-16); CALCIUM, TOTAL 8.9 mg/dL (8.8-10.5); CARBON DIOXIDE 26 mmol/L (22-29); CHLORIDE 99 mmol/L (98-107); GLUCOSE,RANDOM 117 mg/dL (70-110); POTASSIUM 3.7 mmol/L (3.5-5.1); SODIUM SERUM 136 mmol/L (136-145); UREA NITROGEN, BLOOD 11 mg/dL (7-18)
[2019-09-07 18:54] LABS: GLOMERULAR FILTR. RATE CALC > 60 mL/min (>60)
[2019-09-07 18:58] LABS: INR 1.1 (0.9-1.1); PROTHROMBIN TIME 11.7 SEC (9.4-11.6)
[2019-09-07 19:02] LABS: LACTIC ACID 0.9 mmol/L (0.4-2.0)
[2019-09-07 19:10] LABS: ALANINE AMINOTRANSFERASE 21 U/L (12-78); ALKALINE PHOSPHATASE 64 U/L (46-116); ASPARTATE AMINOTRANSFERASE 19 U/L (15-37); BILIRUBIN,TOTAL 0.4 mg/dL (0.1-1.0); C-REACTIVE PROTEIN QUANT 6.82 mg/dL (0.00-0.30); FERRITIN 259 ng/mL (26-388); TOTAL PROTEIN, SERUM 7.7 g/dL (6.4-8.2)
[2019-09-07 20:04] LABS: APPEARANCE,URINE CLEAR (CLEAR); BILIRUBIN,URINE NEGATIVE (NEGATIVE); GLUCOSE, URINE (UA) NEGATIVE (NEGATIVE); KETONES,URINE NEGATIVE (NEGATIVE); LEUKOCYTE ESTERASE ,URINE NEGATIVE (NEGATIVE); NITRATE,URINE NEGATIVE (NEGATIVE); OCCULT BLOOD,URINE NEGATIVE (NEGATIVE); PROTEIN,URINE NEGATIVE (NEGATIVE); UROBILINOGEN,URINE 0.2 mg/dL (<=1.0)
[2019-09-07 21:00] VITALS: BP 120/95
== END 2019-09-07 21:41 | disposition home or self-care (01) ==
LOC: EMS 17:47
DX: R50.9 Fever, unspecified (principal); R19.7 Diarrhea, unspecified; R79.1 Abnormal coagulation profile; R52 Pain, unspecified; F17.210 Nicotine dependence, cigarettes, uncomplicated; F14.90 Cocaine use, unspecified, uncomplicated
CPT/HCPCS: 82728; 83605; 86140; 87040; 93005; 36415-L1; 36415-TC; 71045-TC; 81003-TC